=== PATIENT | male | born 1950 | race Caucasian/White ===

== ENCOUNTER → 2016-12-22 | Outpatient (CLI) | payer BC, MEDICARE ==
[2016-12-22 11:09] LABS: ABSOLUTE EOSINOPHILS # (AUTO) 0.1 10^3/uL (0.0-0.6); ABSOLUTE LYMPHOCYTES (AUTO) 1.6 10^3/uL (0.5-4.7); ABSOLUTE MONOCYTES (AUTO) 0.5 10^3/uL (0.1-1.4); ABSOLUTE NEUT (AUTO) 3.7 10^3/uL (1.7-8.2); BASOPHILS % (AUTO) 0.3 % (0-2); EOSINOPHILS % (AUTO) 2.1 % (0-6); HEMATOCRIT 43.9 % (37.9-51.0); HEMOGLOBIN 15.1 g/dL (13.5-17.0); HGB HCT DIFFERENCE 1.4; LYMPHOCYTES % (AUTO) 26.4 % (13-45); MEAN CORPUSCULAR HEMOGLOBIN 30.5 pg (27.0-33.4); MEAN CORPUSCULAR HGB CONC 34.4 g/dL (32.0-36.0); MEAN CORPUSCULAR VOLUME 89 fl (80-97); MONOCYTES % (AUTO) 7.7 % (3-13); RED BLOOD COUNT 4.95 10^6/uL (4.35-5.55); RED CELL DISTRIBUTION WIDTH 14.3 % (11.5-14.0); SEGMENTED NEUTROPHILS % (AUTO) 63.5 % (42-78); WHITE BLOOD COUNT 5.9 10^3/uL (4.0-10.5)
[2016-12-22 11:31] LABS: ALANINE AMINOTRANSFERASE 38 U/L (21-72); ALBUMIN 4.7 g/dL (3.5-5.0); ALKALINE PHOSPHATASE 76 U/L (38-126); ANION GAP 15 (5-19); ASPARTATE AMINO TRANSFERASE 22 U/L (17-59); BILIRUBIN,TOTAL 0.6 mg/dL (0.2-1.3); BLOOD UREA NITROGEN 14 mg/dL (7-20); CALCIUM 10.1 mg/dL (8.4-10.2); CARBON DIOXIDE 27 mmol/L (22-30); CHLORIDE 100 mmol/L (98-107); CHOLESTEROL 202.68 mg/dL (0-200); CREATININE RESULT 0.83 mg/dL (0.52-1.25); Direct HDL 43 mg/dL (>40); GLUCOSE 149 mg/dL (75-110); POTASSIUM 4.8 mmol/L (3.6-5.0); SODIUM 141.8 mmol/L (137-145); TOTAL PROTEIN 7.5 g/dL (6.3-8.2); TRIGLYCERIDES 211 mg/dL (<150)
[2016-12-22 11:42] LABS: DIRECT LDL 108 mg/dL (<100)
[2016-12-22 12:02] LABS: VLDL CHOLESTEROL 42.2 mg/dL (10-31)
== END ==
LOC: OD 10:09
DX: Z79.899 Other long term (current) drug therapy (principal); Z12.5 Encounter for screening for malignant neoplasm of prostate; E11.9 Type 2 diabetes mellitus without complications; E78.5 Hyperlipidemia, unspecified
CPT/HCPCS: 36415; 84443; 85025; 80053; 83036; 80061; G0103

== ENCOUNTER → 2017-03-29 | Outpatient (CLI) | payer BC ==
[2017-03-29 11:29] LABS: ANION GAP 12 (5-19); BLOOD UREA NITROGEN 16 mg/dL (7-20); CALCIUM 9.5 mg/dL (8.4-10.2); CARBON DIOXIDE 26 mmol/L (22-30); CHLORIDE 103 mmol/L (98-107); CHOLESTEROL 208.61 mg/dL (0-200); CREATININE RESULT 0.72 mg/dL (0.52-1.25); Direct HDL 43 mg/dL (>40); GLUCOSE 128 mg/dL (75-110); POTASSIUM 4.7 mmol/L (3.6-5.0); SODIUM 141.2 mmol/L (137-145); TRIGLYCERIDES 120 mg/dL (<150)
[2017-03-29 11:40] LABS: DIRECT LDL 118 mg/dL (<100)
== END ==
LOC: OD 09:21
PROVIDERS: ATTEND Internal Medicine Cardiovascular Disease
DX: I10 Essential (primary) hypertension (principal); R55 Syncope and collapse; E11.65 Type 2 diabetes mellitus with hyperglycemia; E78.5 Hyperlipidemia, unspecified
CPT/HCPCS: 36415; 80048; 80061

== ENCOUNTER 2017-06-14 03:29 | Emergency (ER) | payer BC, MEDICARE ==
[2017-06-14 03:56] VITALS: BP 140/84
[2017-06-14] MEDS ORDERED: DIPH/PERTUSS(ACELL)/TETANUS VAC/PF 0.5 ML SYR (>=10YO) IM ONE (05:34)
--- NOTE | 2017-06-14 05:34 | ER Document Report ---
ED Wound - General Chief Complaint: Laceration Stated Complaint: FINGER LACERATION Time Seen by Provider: 06/14/17 05:25 Notes: Patient is a 66-year-old male comes emergency department for chief complaint of finger pain and swelling to his middle finger on his left hand. Patient reports that about 2-1/2 days ago he accidentally cut the finger with his knife , he states since then it has started to become red, swollen, and have a discolored discharge. He states the area so painful he cannot sleep. He denies fever, he denies history of diabetes. His tetanus is not up-to-date within 5 years. He denies any daily medications other than medications for depression. TRAVEL OUTSIDE OF THE [place] IN LAST 30 DAYS: No - Related Data Allergies/Adverse Reactions: No Known Allergies Allergy (Unverified 06/14/17 03:56) Past Medical History - General Information source: Patient - Social History Smoking Status: Never Smoker Chew tobacco use (# tins/day): No Frequency of alcohol use: None Drug Abuse: None Lives with: Spouse/Significant other Family History: Reviewed & Not Pertinent Patient has suicidal ideation: No Patient has homicidal ideation: No - Past Medical History Cardiac Medical History: Reports: Hx Hypercholesterolemia, Hx Hypertension Endocrine Medical History: Reports: Hx Diabetes Mellitus Type 2 Renal/ Medical History: Denies: Hx Peritoneal Dialysis GI Medical History: Reports: Hx Gastroesophageal Reflux Disease Psychiatric Medical History: Reports: Hx Anxiety, Hx Depression Past Surgical History: Reports: Hx Adenoidectomy, Hx Nose Surgery - DEVIATED SEPTUM, Hx Tonsillectomy - Immunizations Hx Diphtheria, Pertussis, Tetanus Vaccination: No - unknown Review of Systems - Review of Systems Constitutional: No symptoms reported EENT: No symptoms reported Cardiovascular: No symptoms reported Respiratory: No symptoms reported Gastrointestinal: No symptoms reported Genitourinary: No symptoms reported Male Genitourinary: No symptoms reported Musculoskeletal: See HPI Skin: See HPI Hematologic/Lymphatic: No symptoms reported Neurological/Psychological: No symptoms reported Physical Exam - Vital signs Vitals: Temp Pulse Resp BP Pulse Ox 99 F 83 18 140/84 H 96 06/14/17 03:48 06/14/17 03:48 06/14/17 03:48 06/14/17 03:48 06/14/17 03:48 Interpretation: Normal - General General appearance: Appears well, Alert In distress: None - HEENT Head: Normocephalic, Atraumatic Eyes: Normal Pupils: PERRL - Respiratory Respiratory status: No respiratory distress Chest status: Nontender Breath sounds: Normal Chest palpation: Normal - Cardiovascular Rhythm: Regular. No: Tachycardia Heart sounds: Normal auscultation, S1 appreciated, S2 appreciated Murmur: No - Abdominal Inspection: Normal Distension: No distension Bowel sounds: Normal Tenderness: Nontender. No: Tender, Guarding Organomegaly: No organomegaly - Back Back: Normal, Nontender. No: Tender - Extremities General upper extremity: Other - Swelling of the left third digit extending to the dorsum of the left hand, small horizontal laceration over the PIP, when squeezed purulent drainage is expressed from the laceration. Finger resting in slight flexion. Capillary refill and sensation intact. Large amount of pain with passive and active flexion of the finger. General lower extremity: Normal inspection, Nontender, Normal ROM, Normal strength - Neurological Neuro grossly intact: Yes Cognition: Normal Orientation: AAOx4 Jeffrey Coma Scale Eye Opening: Spontaneous Benitez Coma Scale Verbal: Oriented Benitez Coma Scale Motor: Obeys Commands Benitez Coma Scale Total: 15 Speech: Normal Motor strength normal: LUE, RUE, LLE, RLE Sensory: Normal - Psychological Associated symptoms: Normal affect, Normal mood - Skin Skin Temperature: Warm Skin Moisture: Dry Skin Color: Normal Course - Re-evaluation Re-evalutation: 06/14/17 05:42 Patient with a horizontal laceration over the PIP joint of the left middle finger. Redness, swelling of the finger and up in including the dorsal aspect of the hand. Slight flexion of the finger, extreme pain with performing additional flexion. I called and spoke with orthopedics on-call, Dr. Freire he recommends that a wound culture be performed, digital block. With slight opening of the wound for increased drainage, Augmentin antibiotic, and he wants to see the patient in his office this morning and a few hours after the office opens at 8 AM. I discussed this with patient, he states understanding and agreement. - Vital Signs Vital signs: Temp Pulse Resp BP Pulse Ox 99 F 83 18 140/84 H 96 06/14/17 03:48 06/14/17 03:48 06/14/17 03:48 06/14/17 03:48 06/14/17 03:48 Procedures - Incision and Drainage left 3rd digit Type: Single Anesthetic type: 1% Lidocaine, 0.5% Bupivacaine mL's of anesthetic: 6 - digital block Blade size: 11 I&D procedure: Sterile dressing applied - xeroform Incision Method: Incision made by scalpel Amount/type of drainage: 2 ml of purulent drainage with some bleeding Notes: After digital block was performed, area was re-cleaned again with surgical cleanser, reopened the laceration with a scalpel, drained out about 2 mL's of purulent material. Xeroform dressing applied. Discharge - Discharge Clinical Impression: Wound infection, Finger swelling Condition: Stable Disposition: HOME, SELF-CARE Additional Instructions: I spoke with Dr. Freire, Orthopedics collection technician. He wants to see you in his office this morning. Please go to the address listed below this morning. Do not delay. You have an infection in your finger that must be taken care of. Return to the ED for any concerning symptoms. Take the Augmentin antibiotic as directed, take the morphine as directed if needed (along with the colace stool softener to avoid constipation). Prescriptions: Morphine Sulfate [Morphine Ir 15 Mg Tablet] 15 mg PO Q4HP PRN #15 tablet PRN Reason: Amox Tr/Potassium Clavulanate [Augmentin 875-125 Tablet] 1 tab PO BID 7 Days tablet Docusate Sodium [Colace 100 mg Capsule] 100 mg PO DAILY #30 capsule Referrals: STEWART HOPE MD [ACTIVE STAFF] - 06/14/17
[2017-06-14] MEDS ORDERED: AMOXICILLIN TR/POT CLAVULANATE 500-125 MG TAB PO ONE (05:38)
[2017-06-14] MEDS ORDERED: AMOXICILLIN TRIHYDRATE 500 MG CAPSULE PO ONE (05:38)
[2017-06-14] MEDS ORDERED: LIDOCAINE 1% INJ-PF (10 MG/ML) 30 ML SDV INJ ONE (05:39)
[2017-06-14] MEDS ORDERED: HYDROCODONE/ACETAMINOPHEN 5-325 MG 6 TAB/DSPK PO PRN (06:17)
--- NOTE | 2017-06-18 15:45 | PDOC H&P ---
History of Present Illness Patient complains of: Swelling left middle finger History of Present Illness: CHANDANA PATTERSON is a 66 year old male 66-year-old male who sustained a laceration to his left middle finger approximately 1 week ago. He subsequently was seen at the emergency room for an abscess which was decompressed irrigated and started on antibiotics. He was seen in our office with redness and swelling was controlled there was no significant drainage at that time. The patient states over the past 24-48 hours despite antibiotics and daily dressing changes the redness swelling and pain notably worsened and he began having cloudy appearing discharge. His current pain is 7/10. Past Medical History Cardiac Medical History: Reports: Hyperlipidema, Hypertension Endocrine Medical History: Reports: Diabetes Mellitus Type 2 GI Medical History: Reports: Gastroesophageal Reflux Disease Psychiatric Medical History: Reports: Depression Past Surgical History Past Surgical History: Reports: Tonsillectomy Social History Lives with: Spouse/Significant other Smoking Status: Never Smoker Family History Family History: Reviewed & Not Pertinent Parental Family History Reviewed: No Children Family History Reviewed: No Sibling(s) Family History Reviewed.: No Medication/Allergy Home Medications: Amlodipine Besylate [Norvasc 10 mg Tablet] 05/08/12 Armodafinil [Nuvigil] 05/08/12 Eplerenone [Inspra 25 mg Tablet] 05/08/12 Esomeprazole Mag Trihydrate [Nexium] 05/08/12 Fenofibrate Nanocrystallized [Tricor] 05/08/12 Lamotrigine [Lamictal Xr] 05/08/12 Metformin HCl [Glucophage 1000 mg Tablet] 05/08/12 [place]-3 Acid Ethyl Esters [Lovaza 1 gm Capsule] 05/08/12 Paroxetine HCl [Paxil 20 mg Tablet] 05/08/12 Torsemide [Demadex 5 mg Tablet] 05/08/12 Valsartan [Diovan] 05/08/12 Amox Tr/Potassium Clavulanate [Augmentin 875-125 Tablet] 1 tab PO BID 7 Days tablet 06/14/17 Docusate Sodium [Colace 100 mg Capsule] 100 mg PO DAILY #30 capsule 06/14/17 Morphine Sulfate [Morphine Ir 15 Mg Tablet] 15 mg PO Q4HP PRN #15 tablet Allergies/Adverse Reactions: No Known Allergies Allergy (Verified 09/01/17 15:24) Review of Systems Constitutional: ABSENT: chills, fever(s), headache(s), weight gain, weight loss Eyes: ABSENT: visual disturbances Ears: ABSENT: hearing changes Cardiovascular: ABSENT: chest pain, dyspnea on exertion, edema, orthropnea, palpitations Respiratory: ABSENT: cough, hemoptysis Gastrointestinal: ABSENT: abdominal pain, constipation, diarrhea, hematemesis, hematochezia, nausea, vomiting Genitourinary: ABSENT: dysuria, hematuria Musculoskeletal: PRESENT: as per HPI Integumentary: ABSENT: rash, wounds Neurological: ABSENT: abnormal gait, abnormal speech, confusion, dizziness, focal weakness, syncope Psychiatric: ABSENT: anxiety, depression, homidical ideation, suicidal ideation Endocrine: ABSENT: cold intolerance, heat intolerance, menstrual abnormalities, polydipsia, polyuria Hematologic/Lymphatic: ABSENT: easy bleeding, easy bruising, lymphadenopathy Physical Exam Vital Signs: Temp Pulse Resp BP Pulse Ox 99 F 78 18 140/84 H 97 06/14/17 03:48 06/14/17 06:27 06/14/17 06:27 06/14/17 03:48 06/14/17 06:27 General appearance: PRESENT: no acute distress, well-developed, well-nourished Head exam: PRESENT: atraumatic, normocephalic Eye exam: PRESENT: conjunctiva pink, EOMI, PERRLA. ABSENT: scleral icterus Ear exam: PRESENT: normal external ear exam Mouth exam: PRESENT: moist, tongue midline Neck exam: PRESENT: full ROM. ABSENT: carotid bruit, JVD, lymphadenopathy, thyromegaly Respiratory exam: PRESENT: unlabored Cardiovascular exam: PRESENT: RRR. ABSENT: diastolic murmur, rubs, systolic murmur Pulses: PRESENT: normal dorsalis pedis pul, +2 pedal pulses bilateral Vascular exam: PRESENT: normal capillary refill GI/Abdominal exam: PRESENT: normal bowel sounds, soft. ABSENT: distended, guarding, mass, organolmegaly, rebound, tenderness Rectal exam: PRESENT: deferred Musculoskeletal exam: PRESENT: other - Left hand: Notable redness swelling with transverse wound along the PIP joint dorsally. Erythema throughout the dorsum of the finger. Pain with terminal flexion. Digit rest in the flexed position. No tenderness along the flexor sheath. Cloudy drainage expressed with palpation. Cap refill less than 2 seconds. No sensory deficits. Neurological exam: PRESENT: alert, awake, oriented to person, oriented to place , oriented to time, oriented to situation, CN II-XII grossly intact. ABSENT: motor sensory deficit Psychiatric exam: PRESENT: appropriate affect, normal mood. ABSENT: homicidal ideation, suicidal ideation Skin exam: PRESENT: dry, intact, warm. ABSENT: cyanosis, rash Results Laboratory Results: 06/14/17 06:10 Finger - Left Middle Finger Gram Stain - Final 06/14/17 06:10 Finger - Left Middle Finger Wound Culture - Final Staphylococcus Aureus Assessment & Plan - Diagnosis (1) Abscess of finger of left hand Is this a current diagnosis for this admission?: Yes Plan: Patient demonstrates cloudy drainage on examination today which is consistent with possible residual abscess of the left middle finger but given its location underlying PIP joint septic arthritis remains within the differential diagnosis. Patient will be started on IV Unasyn since his previous cultures were pansensitive. We will set him up for operative intervention within the next 24 hours which includes irrigation and debridement left middle finger. Risks and benefits have been explained to the patient including residual pain, stiffness, posttraumatic arthritis, worsening infection requiring repeat operative intervention and any unforeseen complication patient has verbalized understanding consented for the procedure.
== END 2017-06-14 06:27 | disposition home or self-care (01) ==
LOC: ER 03:29
PROC: 0H9GXZZ Drainage of Left Hand Skin, External Approach (ICD-10-PCS; principal; 2017-06-14)
DX: S61.213A Laceration without foreign body of left middle finger without damage to nail, initial encounter (principal); L08.9 Local infection of the skin and subcutaneous tissue, unspecified; W26.0XXA Contact with knife, initial encounter; E11.9 Type 2 diabetes mellitus without complications; I10 Essential (primary) hypertension
CPT/HCPCS: 87070; 87077; 87186; 87205; 90471; 90715; 99283

== ENCOUNTER 2017-06-18 14:46 | Inpatient (IN) | payer BC, MEDICARE ==
[2017-06-18] MEDS ORDERED: NORMAL SALINE 1000 ML 1,000 ML IV ONE ×2 (15:41→15:53)
[2017-06-18] MEDS ORDERED: AMPICILLIN SOD/SULBACTAM 3 GM VIAL IV ONE (15:42)
--- NOTE | 2017-06-18 15:42 | ER Document Report ---
ED General - General Chief Complaint: Wound Infection Stated Complaint: WOUND REVISIT Time Seen by Provider: 06/18/17 15:33 TRAVEL OUTSIDE OF THE [place] IN LAST 30 DAYS: No - HPI Patient complains to provider of: Left middle finger infection Notes: Patient coming in for evaluation of a wound on left middle finger at the PIP joint. Patient was recently seen and evaluated by our staff here in ER and then followed up with orthopedics patient is currently on Augmentin patient states has been compliant with medication however worsening of infection patient also having night sweats and chills. Denies any fevers patient otherwise is in no obvious distress upon my evaluation - Related Data Allergies/Adverse Reactions: No Known Allergies Allergy (Verified 06/18/17 15:24) Home Medications: Current Home Medications Alprazolam [Xanax 0.5 mg Tablet] 0.5 mg PO Q12HP PRN 06/18/17 [History] Amlodipine Besylate [Norvasc 10 mg Tablet] 10 mg PO DAILY 06/18/17 [History] Amoxicillin/Potassium Clav [Amox-Clav 875-125 mg Tablet] 1 tab PO Q12 PRN [History] Clonidine HCl [Clonidine HCl] 0.3 mg PO Q12 06/18/17 [History] Dextroamphetamine/Amphetamine [Dextroamp-Amphet ER 30 mg Cap] 30 mg PO DAILY 11/03 [History] Eplerenone [Eplerenone] 50 mg PO DAILY 06/18/17 [History] Lamotrigine [Lamotrigine] 200 mg PO DAILY 06/18/17 [History] Lisinopril [Lisinopril] 40 mg PO DAILY 06/18/17 [History] Metformin HCl [Metformin HCl ER] 750 mg PO BIDBS 06/18/17 [History] Morphine Sulfate [Morphine Sulfate] 15 mg PO Q4HP PRN 06/18/17 [History] Paroxetine HCl [Paroxetine HCl] 40 mg PO DAILY 06/18/17 [History] Past Medical History - Social History Smoking Status: Never Smoker Chew tobacco use (# tins/day): No Frequency of alcohol use: None Drug Abuse: None Family History: Reviewed & Not Pertinent Patient has suicidal ideation: No Patient has homicidal ideation: No - Past Medical History Cardiac Medical History: Reports: Hx Hypercholesterolemia, Hx Hypertension Endocrine Medical History: Reports: Hx Diabetes Mellitus Type 2 Renal/ Medical History: Denies: Hx Peritoneal Dialysis GI Medical History: Reports: Hx Gastroesophageal Reflux Disease Psychiatric Medical History: Reports: Hx Anxiety, Hx Depression Past Surgical History: Reports: Hx Abdominal Surgery, Hx Adenoidectomy, Hx Nose Surgery - DEVIATED SEPTUM, Hx Tonsillectomy - Immunizations Hx Diphtheria, Pertussis, Tetanus Vaccination: No - unknown Review of Systems - Review of Systems Constitutional: No symptoms reported EENT: No symptoms reported Cardiovascular: No symptoms reported Respiratory: No symptoms reported Gastrointestinal: No symptoms reported Genitourinary: No symptoms reported Male Genitourinary: No symptoms reported Musculoskeletal: No symptoms reported Skin: No symptoms reported Hematologic/Lymphatic: No symptoms reported Neurological/Psychological: Other - Wound evaluation -: Yes All other systems reviewed and negative Physical Exam - Vital signs Vitals: Temp Pulse Resp BP Pulse Ox 99.3 F 112 H 18 185/106 H 99 06/18/17 14:54 06/18/17 14:54 06/18/17 14:54 06/18/17 14:54 06/18/17 14:54 Interpretation: Normal - General General appearance: Appears well, Alert - HEENT Head: Normocephalic, Atraumatic Eyes: Normal Pupils: PERRL - Respiratory Respiratory status: No respiratory distress Chest status: Nontender Breath sounds: Normal Chest palpation: Normal - Cardiovascular Rhythm: Regular Heart sounds: Normal auscultation Murmur: No - Abdominal Inspection: Normal Distension: No distension Bowel sounds: Normal Tenderness: Nontender Organomegaly: No organomegaly - Back Back: Normal, Nontender - Extremities General upper extremity: Nontender, Normal color, Normal ROM, Normal temperature. No: Normal inspection - Patient coming in with a wound to the PIP joint on the dorsum of the left hand that is open painful range of motion active and passive. Swelling to the PIP tender to palpation at this finger General lower extremity: Normal inspection, Nontender, Normal color, Normal ROM , Normal temperature, Normal weight bearing. No: Nae's sign - Neurological Neuro grossly intact: Yes Cognition: Normal Orientation: AAOx4 Irvona Coma Scale Eye Opening: Spontaneous Benitez Coma Scale Verbal: Oriented Benitez Coma Scale Motor: Obeys Commands Irvona Coma Scale Total: 15 Speech: Normal Motor strength normal: LUE, RUE, LLE, RLE Sensory: Normal - Psychological Associated symptoms: Normal affect, Normal mood - Skin Skin Temperature: Warm Skin Moisture: Dry Skin Color: Normal Course - Re-evaluation Re-evalutation: 06/18/17 19:[address] Braga came to evaluate the patient will admit the patient for surgery in the morning more likely will have a cleanout. Laboratory studies were ordered per Dr. hartley's request along with antibiotics. - Vital Signs Vital signs: Temp Pulse Resp BP Pulse Ox 99.3 F 86 16 151/99 H 99 06/18/17 17:21 06/18/17 19:00 06/18/17 17:21 06/18/17 19:00 06/18/17 17:21 - Laboratory Result Diagrams: 06/18/17 16:51 06/18/17 18:00 Discharge - Discharge Clinical Impression: Finger swelling, Wound infection Condition: Good Disposition: ADMITTED INPATIENT Admitting Provider: Maria Luz Unit Admitted: Surgical Floor
--- NOTE | 2017-06-18 15:50 | PDOC H&P ---
History of Present Illness Patient complains of: left middle finger swelling History of Present Illness: History of Present Illness Patient complains of: Swelling left middle finger History of Present Illness: CHANDANA PATTERSON is a 66 year old male 66-year-old male who sustained a laceration to his left middle finger approximately 1 week ago. He subsequently was seen at the emergency room for an abscess which was decompressed irrigated and started on antibiotics. He was seen in our office with redness and swelling was controlled there was no significant drainage at that time. The patient states over the past 24-48 hours despite antibiotics and daily dressing changes the redness swelling and pain notably worsened and he began having cloudy appearing discharge. His current pain is 7/10. Musculoskeletal exam: PRESENT: other - Left hand: Notable redness swelling with transverse wound along the PIP joint dorsally. Erythema throughout the dorsum of the finger. Pain with terminal flexion. Digit rest in the flexed position. No tenderness along the flexor sheath. Cloudy drainage expressed with palpation. Cap refill less than 2 seconds. No sensory deficits. Neurological exam: PRESENT: alert, awake, oriented to person, oriented to place , oriented to time, oriented to situation, CN II-XII grossly intact. ABSENT: motor sensory deficit Psychiatric exam: PRESENT: appropriate affect, normal mood. ABSENT: homicidal ideation, suicidal ideation Skin exam: PRESENT: dry, intact, warm. ABSENT: cyanosis, rash Results Laboratory Results: 06/14/17 06:10 Finger - Left Middle Finger Gram Stain - Final 06/14/17 06:10 Finger - Left Middle Finger Wound Culture - Final Staphylococcus Aureus Assessment & Plan - Diagnosis (1) Abscess of finger of left hand Is this a current diagnosis for this admission?: Yes Plan: Patient demonstrates cloudy drainage on examination today which is consistent with possible residual abscess of the left middle finger but given its location underlying PIP joint septic arthritis remains within the differential diagnosis. Patient will be started on IV Unasyn since his previous cultures were pansensitive. We will set him up for operative intervention within the next 24 hours which includes irrigation and debridement left middle finger. Risks and benefits have been explained to the patient including residual pain, stiffness, posttraumatic arthritis, worsening infection requiring repeat operative intervention and any unforeseen complication patient has verbalized understanding consented for the procedure. Past Medical History Cardiac Medical History: Reports: Hyperlipidema, Hypertension Endocrine Medical History: Reports: Diabetes Mellitus Type 2 GI Medical History: Reports: Gastroesophageal Reflux Disease Psychiatric Medical History: Reports: Depression Past Surgical History Past Surgical History: Reports: Tonsillectomy Social History Smoking Status: Never Smoker Family History Family History: Reviewed & Not Pertinent Parental Family History Reviewed: No Children Family History Reviewed: No Sibling(s) Family History Reviewed.: No Medication/Allergy Home Medications: Amlodipine Besylate [Norvasc 10 mg Tablet] 05/08/12 Armodafinil [Nuvigil] 05/08/12 Eplerenone [Inspra 25 mg Tablet] 05/08/12 Esomeprazole Mag Trihydrate [Nexium] 05/08/12 Fenofibrate Nanocrystallized [Tricor] 05/08/12 Lamotrigine [Lamictal Xr] 05/08/12 Metformin HCl [Glucophage 1000 mg Tablet] 05/08/12 Pachuta-3 Acid Ethyl Esters [Lovaza 1 gm Capsule] 05/08/12 Paroxetine HCl [Paxil 20 mg Tablet] 05/08/12 Torsemide [Demadex 5 mg Tablet] 05/08/12 Valsartan [Diovan] 05/08/12 Amox Tr/Potassium Clavulanate [Augmentin 875-125 Tablet] 1 tab PO BID 7 Days tablet 06/14/17 Docusate Sodium [Colace 100 mg Capsule] 100 mg PO DAILY #30 capsule 06/14/17 Morphine Sulfate [Morphine Ir 15 Mg Tablet] 15 mg PO Q4HP PRN #15 tablet Allergies/Adverse Reactions: No Known Allergies Allergy (Verified 06/18/17 15:24) Review of Systems Constitutional: ABSENT: chills, fever(s), headache(s), weight gain, weight loss Eyes: ABSENT: visual disturbances Ears: ABSENT: hearing changes Cardiovascular: ABSENT: chest pain, dyspnea on exertion, edema, orthropnea, palpitations Respiratory: ABSENT: cough, hemoptysis Gastrointestinal: ABSENT: abdominal pain, constipation, diarrhea, hematemesis, hematochezia, nausea, vomiting Genitourinary: ABSENT: dysuria, hematuria Musculoskeletal: PRESENT: as per HPI Integumentary: ABSENT: rash, wounds Neurological: ABSENT: abnormal gait, abnormal speech, confusion, dizziness, focal weakness, syncope Psychiatric: ABSENT: anxiety, depression, homidical ideation, suicidal ideation Endocrine: ABSENT: cold intolerance, heat intolerance, menstrual abnormalities, polydipsia, polyuria Hematologic/Lymphatic: ABSENT: easy bleeding, easy bruising, lymphadenopathy Physical Exam Vital Signs: Temp Pulse Resp BP Pulse Ox 99.3 F 112 H 18 185/106 H 99 06/18/17 14:54 06/18/17 14:54 06/18/17 14:54 06/18/17 14:54 06/18/17 14:54 Intake & Output 06/17/17 06/18/17 06/19/17 06:59 06:59 06:59 Weight 81.1 kg General appearance: PRESENT: no acute distress, well-developed, well-nourished Head exam: PRESENT: atraumatic, normocephalic Eye exam: PRESENT: conjunctiva pink, EOMI, PERRLA. ABSENT: scleral icterus Ear exam: PRESENT: normal external ear exam Mouth exam: PRESENT: moist, tongue midline Neck exam: PRESENT: full ROM. ABSENT: carotid bruit, JVD, lymphadenopathy, thyromegaly Respiratory exam: PRESENT: unlabored Cardiovascular exam: PRESENT: RRR. ABSENT: diastolic murmur, rubs, systolic murmur Pulses: PRESENT: normal dorsalis pedis pul, +2 pedal pulses bilateral Vascular exam: PRESENT: normal capillary refill GI/Abdominal exam: PRESENT: normal bowel sounds, soft. ABSENT: distended, guarding, mass, organolmegaly, rebound, tenderness Rectal exam: PRESENT: deferred Musculoskeletal exam: PRESENT: other - Left hand: Notable redness swelling with transverse wound along the PIP joint dorsally. Erythema throughout the dorsum of the finger. Pain with terminal flexion. Digit rest in the flexed position. No tenderness along the flexor sheath. Cloudy drainage expressed with palpation. Cap refill less than 2 seconds. No sensory deficits. Neurological exam: PRESENT: alert, awake, oriented to person, oriented to place , oriented to time, oriented to situation, CN II-XII grossly intact. ABSENT: motor sensory deficit Psychiatric exam: PRESENT: appropriate affect, normal mood. ABSENT: homicidal ideation, suicidal ideation Skin exam: PRESENT: dry, intact, warm. ABSENT: cyanosis, rash Assessment & Plan - Diagnosis (1) Abscess of finger of left hand Is this a current diagnosis for this admission?: Yes Plan: Patient demonstrates cloudy drainage on examination today which is consistent with possible residual abscess of the left middle finger but given its location underlying PIP joint septic arthritis remains within the differential diagnosis. Patient will be started on IV Unasyn since his previous cultures were pansensitive. We will set him up for operative intervention within the next 24 hours which includes irrigation and debridement left middle finger. Risks and benefits have been explained to the patient including residual pain, stiffness, posttraumatic arthritis, worsening infection requiring repeat operative intervention and any unforeseen complication patient has verbalized understanding consented for the procedure.
[2017-06-18] MEDS ORDERED: DEXTROSE 50%-WATER 25 GM/50 ML DISP.SYRIN IV PRN ×2 (15:52)
[2017-06-18] MEDS ORDERED: DEXTROSE 40% GEL 15 GM TUBE PO PRN ×4 (15:52→18:09)
[2017-06-18] MEDS ORDERED: GLUCAGON,HUMAN RECOMB 1 MG INJ SUBCUT PRN (15:52)
[2017-06-18] MEDS ORDERED: DIPH/PERTUSS(ACELL)/TETANUS VAC/PF 0.5 ML SYR (>=10YO) IM ONE (16:02)
[2017-06-18 17:03] LABS: ABSOLUTE BASOPHILS # (AUTO) 0.1 10^3/uL (0.0-0.2); ABSOLUTE EOSINOPHILS # (AUTO) 0.2 10^3/uL (0.0-0.6); ABSOLUTE LYMPHOCYTES (AUTO) 1.4 10^3/uL (0.5-4.7); ABSOLUTE MONOCYTES (AUTO) 0.7 10^3/uL (0.1-1.4); ABSOLUTE NEUT (AUTO) 6.1 10^3/uL (1.7-8.2); BASOPHILS % (AUTO) 0.6 % (0-2); EOSINOPHILS % (AUTO) 2.1 % (0-6); HEMATOCRIT 40.3 % (37.9-51.0); HGB HCT DIFFERENCE 1.7; LYMPHOCYTES % (AUTO) 16.4 % (13-45); MEAN CORPUSCULAR HEMOGLOBIN 30.7 pg (27.0-33.4); MEAN CORPUSCULAR HGB CONC 34.7 g/dL (32.0-36.0); MEAN CORPUSCULAR VOLUME 88 fl (80-97); RED BLOOD COUNT 4.56 10^6/uL (4.35-5.55); RED CELL DISTRIBUTION WIDTH 13.6 % (11.5-14.0); SEGMENTED NEUTROPHILS % (AUTO) 72.9 % (42-78); WHITE BLOOD COUNT 8.4 10^3/uL (4.0-10.5)
[2017-06-18 17:13] LABS: PROTHROMBIN TIME 12.9 SEC (11.4-15.4)
[2017-06-18 17:14] LABS: PARTIAL THROMBOPLASTIN TIME 33.2 SEC (23.5-35.8)
--- NOTE | 2017-06-18 17:14 | PDOC CONSULTATION ---
Consultation Consult Date: 06/18/17 Attending physician:: LIVAN VILLALOBOS Consult reason:: To manage medical illnesses to include diabetes and hypertension. History of Present Illness Admission Date/PCP: The patient is a 66 yom who sustained a laceration to the third finger of his left hand last Wednesday while he was sharpening a knife. He washed the wound with peroxide. The swelling and pain continued to get worse and he was unable to sleep. The patient presented to the ED on Wednesday AM at approximately 0300 with pain and inability to sleep. He underwent I and D. He was discharged on Augmentin 875 BID. He was also discharged on Vicodin and Morphine for pain. The patient was seen later that day by [facility]. He was seen by a hand surgeon. It was felt that he would improve with oral antibiotics. He has a scheduled follow-up for June 23, 2017. Unfortunately, the swelling has persisted. The patient has been having chills and drenching sweats at home. Therefore, he returned to the ED today. He was evaluated by Dr. Villalobos and will have surgery tomorrow am. The patient also notes purulent drainage from the area. When the patient was previously in the ED a culture was sent. This demonstrates brambila sensitive MSSA. The patient takes the following medications at home: Norvasc 10mg po daily Metformin 750mg po bid Dexamphetamine 30mg po daily Lisinopril 40mg po daily Clonidine 0.3mg po bid Eplerenone 50mg po daily Paxil 20mg po daily Lamotrigine 200mg po daily Alprazolam 0.5mg po bid Past Medical History Cardiac Medical History: Reports: Hyperlipidema, Hypertension Pulmonary Medical History: Reports: Sleep Apnea Endocrine Medical History: Reports: Diabetes Mellitus Type 2 GI Medical History: Reports: Gastroesophageal Reflux Disease Psychiatric Medical History: Reports: Attention Deficit Hyperactivity Disorder, Depression Past Surgical History Past Surgical History: Reports: Appendectomy, Tonsillectomy, Other - Repair of Meckel's diverticulum. Deviated septum repair. Social History Smoking Status: Never Smoker Family History Family History: Reviewed & Not Pertinent, CVA, DM, Hypertension, Other - Depression in multiple family members. Parental Family History Reviewed: Yes Children Family History Reviewed: NA Sibling(s) Family History Reviewed.: Yes - Younger brother committed suicide. Medication/Allergy Allergies/Adverse Reactions: No Known Allergies Allergy (Verified 06/18/17 15:24) Review of Systems Constitutional: PRESENT: chills, night sweats Eyes: ABSENT: visual disturbances Ears: ABSENT: hearing changes Cardiovascular: ABSENT: chest pain, dyspnea on exertion, edema, orthropnea, palpitations Respiratory: ABSENT: cough, hemoptysis Gastrointestinal: ABSENT: abdominal pain, constipation, diarrhea, hematemesis, hematochezia, nausea, vomiting Genitourinary: ABSENT: dysuria, hematuria Musculoskeletal: PRESENT: as per HPI Integumentary: ABSENT: rash, wounds Neurological: ABSENT: abnormal gait, abnormal speech, confusion, dizziness, focal weakness, syncope Psychiatric: PRESENT: depression Endocrine: ABSENT: cold intolerance, heat intolerance, polydipsia, polyuria Hematologic/Lymphatic: ABSENT: easy bleeding, easy bruising Physical Exam Vital Signs: Temp Pulse Resp BP Pulse Ox 99.3 F 112 H 18 185/106 H 99 06/18/17 14:54 06/18/17 14:54 06/18/17 14:54 06/18/17 14:54 06/18/17 14:54 General appearance: PRESENT: no acute distress, cooperative Head exam: PRESENT: atraumatic Eye exam: PRESENT: EOMI Ear exam: PRESENT: normal external ear exam Mouth exam: PRESENT: neck supple Throat exam: PRESENT: other - Normal Respiratory exam: PRESENT: clear to auscultation vito Cardiovascular exam: PRESENT: RRR GI/Abdominal exam: PRESENT: normal bowel sounds, soft Rectal exam: PRESENT: deferred Neurological exam: PRESENT: alert, awake Psychiatric exam: PRESENT: appropriate affect - The middle finger of the left hand is swollen and edematous. There is an incision already present. There is a significant degree of ecchymosis around the area. The hand is also swollen. There are no streaks of erythema up the arm. There is no lymphadenopathy in the axilla, SC area or cervical area. Assessment & Plan - Diagnosis (1) Diabetes Plan: The patient normally uses Metformin at home with good control of his diabetes. While he is hospitalized I would hold Metformin and use sliding scale insulin. (2) Hypertension Plan: Continue the patient's routine OP HTN meds which are Norvasc 10mg po daily, lisinopril 40mg po daily, clonidine 0.3mg po bid. (3) Obstructive sleep apnea Plan: The patient does not have access to his CPAP machine. He will sleep in a partially inclined position. If necessary we can empirically use one of the hospitals machines but the patient does not know his pressure setting. (4) Depression Plan: Continue his psychiatric medications. (5) Adult ADHD (attention deficit hyperactivity disorder) Plan: Continue outpatient medications. (6) Abscess of finger of left hand Is this a current diagnosis for this admission?: Yes Plan: Dr. Villalobos is planning on taking the patient to the OR tomorrow for surgical I and D with washout. Additional cultures will likely be taken. Currently, the patient is receiving intravenous Unasyn which should be adequate based on the current culture. - Time Time Spent: 30 to 50 Minutes - Inpatient Certification Medical Necessity: Need for IV Antibiotics, Need for Surgery - Plan Summary Plan Summary: Thank you for allowing us to participate in the care of this patient. We will follow his course with you.
--- NOTE | 2017-06-18 17:18 | RADIOLOGY REPORT (SQ) ---
EXAM DESCRIPTION: HAND LEFT 3 VIEWS COMPLETED DATE/TIME: 06/18/2017 5:09 pm REASON FOR STUDY: eval middle finger infection COMPARISON: None. EXAM PARAMETERS: NUMBER OF VIEWS: Three views. TECHNIQUE: AP, lateral and oblique radiographic images acquired of the left hand. LIMITATIONS: None. FINDINGS: MINERALIZATION: Normal. BONES: No acute fracture or dislocation. No worrisome bone lesions. JOINTS: No effusions. SOFT TISSUES: Soft tissue swelling centered at the 3rd PIP joint. OTHER: No other significant finding. IMPRESSION: SOFT TISSUE SWELLING WITHOUT ACUTE OSSEOUS ABNORMALITY. TECHNICAL DOCUMENTATION: JOB ID: [id number] [employer]- All Rights Reserved
[2017-06-18 17:24] LABS: ANION GAP 15 (5-19); BLOOD UREA NITROGEN 17 mg/dL (7-20); C-REACTIVE PROTEIN 35.8 mg/L (<10.0); CALCIUM 9.8 mg/dL (8.4-10.2); CARBON DIOXIDE 25 mmol/L (22-30); CHLORIDE 104 mmol/L (98-107); CREATININE RESULT 0.65 mg/dL (0.52-1.25); GLUCOSE 136 mg/dL (75-110); SODIUM 144.4 mmol/L (137-145)
[2017-06-18 17:39] LABS: ERYTHROCYTE SEDIMENTATION RATE 31 mm/hr (0-20)
[2017-06-18] MEDS ORDERED: AMPICILLIN SOD/SULBACTAM 3 GM VIAL IV SCH (18:00)
[2017-06-18] MEDS ORDERED: ALPRAZOLAM 0.5 MG TABLET PO PRN (18:01)
[2017-06-18] MEDS ORDERED: INSULIN LISPRO 100 UNIT/ML 3 ML VIAL SUBCUT PRN (18:09)
[2017-06-18] MEDS: RINGERS SOLUTION,LACTATED 1,000 ML IV PRN (18:15)
[2017-06-18 18:40] LABS: ANION GAP 11 (5-19); BLOOD UREA NITROGEN 16 mg/dL (7-20); CALCIUM 8.9 mg/dL (8.4-10.2); CARBON DIOXIDE 27 mmol/L (22-30); CHLORIDE 106 mmol/L (98-107); CREATININE RESULT 0.63 mg/dL (0.52-1.25); GLUCOSE 97 mg/dL (75-110); POTASSIUM 3.8 mmol/L (3.6-5.0); SODIUM 144.3 mmol/L (137-145)
[2017-06-18] MEDS ORDERED: EPLERENONE 25 MG TABLET PO ONE (19:00)
[2017-06-18] MEDS ORDERED: OXYCODONE HCL IR 5 MG TABLET PO PRN (19:06)
[2017-06-18] MEDS ORDERED: MORPHINE SULFATE 10 MG/ML INJ IV PRN (19:07)
[2017-06-18] MEDS: CLONIDINE HCL 0.2 MG TABLET PO SCH (21:29)
[2017-06-18] MEDS ORDERED: (PENDING PHARMACY ID) (Clonidine Hcl [Clonidine Hcl] 0.3 MG) PO SCH (22:00)
--- NOTE | 2017-06-18 22:03 | EKG REPORT ---
SEVERITY:- ABNORMAL ECG - SINUS RHYTHM MULTIPLE VENTRICULAR PREMATURE COMPLEXES LEFT AXIS DEVIATION : Confirmed by: Ruby Jiménez 18-Jun-2017 22:03:05
[2017-06-18] MEDS: AMPICILLIN SODIUM/SULBACTAM NA 3 GM in NORMAL SALINE 100 ML IV SCH (23:29)
[2017-06-19] MEDS: AMPICILLIN SODIUM/SULBACTAM NA 3 GM in NORMAL SALINE 100 ML IV SCH ×3 (05:02→17:40)
[2017-06-19 06:13] LABS: ABSOLUTE EOSINOPHILS # (AUTO) 0.2 10^3/uL (0.0-0.6); ABSOLUTE LYMPHOCYTES (AUTO) 1.4 10^3/uL (0.5-4.7); ABSOLUTE MONOCYTES (AUTO) 0.5 10^3/uL (0.1-1.4); ABSOLUTE NEUT (AUTO) 3.3 10^3/uL (1.7-8.2); BASOPHILS % (AUTO) 0.4 % (0-2); HEMATOCRIT 36.5 % (37.9-51.0); HEMOGLOBIN 12.5 g/dL (13.5-17.0); LYMPHOCYTES % (AUTO) 25.7 % (13-45); MEAN CORPUSCULAR HEMOGLOBIN 30.7 pg (27.0-33.4); MEAN CORPUSCULAR HGB CONC 34.3 g/dL (32.0-36.0); MEAN CORPUSCULAR VOLUME 90 fl (80-97); MONOCYTES % (AUTO) 9.3 % (3-13); RED BLOOD COUNT 4.08 10^6/uL (4.35-5.55); SEGMENTED NEUTROPHILS % (AUTO) 61.6 % (42-78); WHITE BLOOD COUNT 5.3 10^3/uL (4.0-10.5)
[2017-06-19] MEDS ORDERED: FENTANYL CITRATE INJ/PF 100 MCG/2 ML AMPUL ONE (07:37)
[2017-06-19] MEDS ORDERED: PROPOFOL INJ 200 MG/20 ML VIAL IV ONE (07:38)
[2017-06-19] MEDS ORDERED: MIDAZOLAM 2 MG/2 ML INJ ONE (07:38)
[2017-06-19] MEDS ORDERED: BACITRACIN INJ 50,000 UNIT VIAL ONE (07:52)
--- NOTE | 2017-06-19 08:09 | PDOC PROGRESS REPORT ---
Subjective Progress Note for:: 06/19/17 Subjective:: Patient seen and evaluated this morning. States his pain and swelling have improved since the IV antibiotics. But continues to have drainage from the finger. Physical Exam Vital Signs: Temp Pulse Resp BP Pulse Ox 98.4 F 69 16 143/81 H 100 06/19/17 04:34 06/19/17 04:34 06/19/17 04:34 06/19/17 04:34 06/19/17 04:34 Intake & Output 06/18/17 06/19/17 06/20/17 06:59 06:59 06:59 Weight 81.1 kg Musculoskeletal exam: PRESENT: other - Left middle finger: Improved erythema however continued swelling along the PIP joint of the middle finger with purulent drainage dorsally. Patient has full active extension but limited flexion secondary to pain. No tenderness along the flexor sheath. Results Laboratory Results: 06/19/17 05:05 06/18/17 18:00 06/18/17 06/18/17 06/18/17 16:51 16:51 18:00 WBC 8.4 RBC 4.56 Hgb 14.0 Hct 40.3 MCV 88 MCH 30.7 MCHC 34.7 RDW 13.6 Plt Count 247 Seg Neutrophils % 72.9 Lymphocytes % 16.4 Monocytes % 8.0 Eosinophils % 2.1 Basophils % 0.6 Absolute Neutrophils 6.1 Absolute Lymphocytes 1.4 Absolute Monocytes 0.7 Absolute Eosinophils 0.2 Absolute Basophils 0.1 Sodium 144.4 144.3 Potassium 4.0 3.8 Chloride 104 106 Carbon Dioxide 25 27 Anion Gap 15 11 BUN 17 16 Creatinine 0.65 0.63 Est GFR ( Amer) > 60 > 60 Est GFR (Non-Af Amer) > 60 > 60 Glucose 136 H 97 Calcium 9.8 8.9 Magnesium 2.0 C-Reactive Protein 35.8 H 06/19/17 05:05 WBC 5.3 RBC 4.08 L Hgb 12.5 L Hct 36.5 L MCV 90 MCH 30.7 MCHC 34.3 RDW 14.0 Plt Count 198 Seg Neutrophils % 61.6 Lymphocytes % 25.7 Monocytes % 9.3 Eosinophils % 3.0 Basophils % 0.4 Absolute Neutrophils 3.3 Absolute Lymphocytes 1.4 Absolute Monocytes 0.5 Absolute Eosinophils 0.2 Absolute Basophils 0.0 Sodium Potassium Chloride Carbon Dioxide Anion Gap BUN Creatinine Est GFR ( Amer) Est GFR (Non-Af Amer) Glucose Calcium Magnesium C-Reactive Protein Impressions: Hand X-Ray 06/18/17 15:41 IMPRESSION: SOFT TISSUE SWELLING WITHOUT ACUTE OSSEOUS ABNORMALITY. Assessment & Plan - Diagnosis (1) Abscess of finger of left hand Is this a current diagnosis for this admission?: Yes Plan: Patient demonstrates continued cloudy drainage on examination today which is consistent with possible residual abscess of the left middle finger but given its location underlying PIP joint septic arthritis remains within the differential diagnosis. Patient will be continued on IV Unasyn since his previous cultures were pansensitive. Patient will undergo operative intervention today which includes irrigation and debridement left middle finger. Risks and benefits have been explained to the patient including residual pain, stiffness, posttraumatic arthritis, worsening infection requiring repeat operative intervention and any unforeseen complication patient has verbalized understanding consented for the procedure.
[2017-06-19] MEDS ORDERED: BACITRACIN INJ 50,000 UNIT VIAL IR ONE (08:19)
[2017-06-19] MEDS ORDERED: LIDOCAINE 1% INJ-PF (10 MG/ML) 30 ML SDV INJ ONE (08:19)
[2017-06-19] MEDS ORDERED: LIDOCAINE 1% INJ-PF (10 MG/ML) 30 ML SDV ONE (08:19)
[2017-06-19] MEDS ORDERED: OXYCODONE HCL IR 5 MG TABLET PO PRN (08:27)
[2017-06-19] MEDS ORDERED: ACETAMINOPHEN 325 MG TABLET PO PRN (08:28)
--- NOTE | 2017-06-19 08:57 | Operative Report ---
Operative Report DATE OF SURGERY: 06/19/17 PREOPERATIVE DIAGNOSIS: Right Middle Finger Infection POSTOPERATIVE DIAGNOSIS: Septic Arthritis Right Middle PIP Joint OPERATION: Excisional I&D Right Middle Finger PIP Including Joint/Bone SURGEON: LIVAN VILLALOBOS ANESTHESIA: LMAC TISSUE REMOVED OR ALTERED: Aerobic/Anaerobic Swabs COMPLICATIONS: None ESTIMATED BLOOD LOSS: Minimal PROCEDURE: Indication for above procedure: 66-year-old male who sustained a inadvertent laceration to his left middle finger dorsally. He then developed redness swelling and pain he was then brought to the emergency room where he was diagnosed with infection. Patient was started on antibiotics and cultures were obtained demonstrating methicillin sensitive staph aureus. Patient continued to have redness swelling and pain of the left middle finger. At that point we discussed treatment options and I recommended formal irrigation and debridement. Risks and benefits were explained patient verbalized understanding consented for the procedure. Procedure In Detail: Patient was seen and evaluated in the preoperative holding area. The LEFT upper extremity was initialized and marked. Patient receiving scheduled Unasyn. Patient was taken back to the operative room where transferred to the operative table and placed under MAC anesthesia. Once they were adequately anesthetized a nonsterile tourniquet was placed on the upper extremity. A surgical team debriefing was performed ensuring all instrumentation was available, the surgical procedure was discussed with possible concerns reviewed. A digital block was performed utilizing 10 cc of 1% lidocaine without epinephrine. The upper extremity was prepped with Betadine and draped in a sterile fashion. A timeout was done identifying correct patient, procedure and extremity everyone in attendance agree with this and verbalized no concerns. A digital tourniquet was placed. Patient's transverse skin incision was extended radially and ulnarly. There was disruption of the extensor tendon at this level and the PIP joint was exposed. Cloudy synovial fluid was expressed from the joint. Cultures were obtained. With gravity irrigation the PIP joint was irrigated. Inspection of the proximal middle phalanx demonstrate no softening of the bone to suggest osteomyelitis. A Solomon was placed into the PIP joint any nonviable tissue or synovium was excised. The wound was once again irrigated with normal saline. A portion of the central slip was closed utilizing Monocryl suture but a portion of it was left open given his infection. Tourniquet was removed a peripheral vasculature was coagulated bipolar cautery. The transverse laceration was partially closed with interrupted 3-0 nylon suture. Wound was dressed with Xeroform 4 x 4's and Coban. Sponge, instrument and needle counts were correct. Patient was awakened from anesthesia transferred from the operative table to the operative stretcher. There was no intraoperative complications patient taps well with stable to PACU. Postoperative plan: Patient will continue on IV antibiotics. We will set him up for a PICC line he will require 4 weeks of IV antibiotics. Will begin dressing change postop day # 2.
[2017-06-19] MEDS: HYDROCODONE/ACETAMINOPHEN 5-325 MG TABLET PO PRN (10:00)
[2017-06-19] MEDS ORDERED: [UNRECOGNIZED DRUG - OTHER] PO SCH (10:00)
[2017-06-19] MEDS ORDERED: AMPHETAMINE PO SCH (10:00)
[2017-06-19] MEDS ORDERED: EPLERENONE 50 MG PO SCH (10:00)
[2017-06-19] MEDS ORDERED: (PENDING PHARMACY ID) (Lamotrigine [Lamotrigine] 200 MG) PO SCH (10:00)
[2017-06-19] MEDS ORDERED: (PENDING PHARMACY ID) (Lisinopril [Lisinopril] 40 MG) PO SCH (10:00)
[2017-06-19] MEDS ORDERED: DEXTROAMPHETAMINE PO SCH (10:00)
[2017-06-19] MEDS: LISINOPRIL 10 MG TABLET PO SCH (10:01)
[2017-06-19] MEDS: AMLODIPINE BESYLATE 10 MG TABLET PO SCH (10:01)
[2017-06-19] MEDS: PAROXETINE HCL 20 MG TABLET PO SCH (10:01)
[2017-06-19] MEDS: EPLERENONE 25 MG TABLET PO SCH (10:01)
[2017-06-19] MEDS: LAMOTRIGINE 100 MG TABLET PO SCH (10:01)
[2017-06-19] MEDS: CLONIDINE HCL 0.2 MG TABLET PO SCH ×2 (10:01→22:28)
[2017-06-19] MEDS: RINGERS SOLUTION,LACTATED 1,000 ML IV PRN (11:09)
--- NOTE | 2017-06-19 12:42 | PDOC PROGRESS REPORT ---
Subjective Progress Note for:: 06/19/17 Subjective:: The patient is a 66-year-old male. He does have underlying diabetes but it is well controlled. The patient sustained a laceration of the left middle finger last Wednesday. He presented with increasing redness, night sweats and chills and purulent drainage. The patient was admitted and placed on Unasyn. This morning, the patient was taken to the operating room by Dr. Braga and underwent incision and drainage. He does have an infected PIP joint and will need 4 weeks of intravenous antibiotics. Orthopedic surgery is arranging for the patient have a PICC line placed. The patient is complaining of pain at the incisional site and within the left hand in general but otherwise has no complaints. Physical Exam Vital Signs: Temp Pulse Resp BP Pulse Ox 97.5 F 65 17 125/74 98 06/19/17 11:46 06/19/17 11:46 06/19/17 11:46 06/19/17 11:46 06/19/17 11:46 Intake & Output 06/18/17 06/19/17 06/20/17 06:59 06:59 06:59 Intake Total 1490 Output Total 750 Balance 740 Weight 81.1 kg General appearance: PRESENT: no acute distress Head exam: PRESENT: atraumatic Eye exam: PRESENT: EOMI Respiratory exam: PRESENT: clear to auscultation vito, unlabored Cardiovascular exam: PRESENT: RRR GI/Abdominal exam: PRESENT: normal bowel sounds, soft Musculoskeletal exam: PRESENT: full ROM Neurological exam: PRESENT: alert Psychiatric exam: PRESENT: appropriate affect Skin exam: PRESENT: intact Results Laboratory Results: 06/19/17 05:05 06/18/17 18:00 06/18/17 06/18/17 06/18/17 16:51 16:51 18:00 WBC 8.4 RBC 4.56 Hgb 14.0 Hct 40.3 MCV 88 MCH 30.7 MCHC 34.7 RDW 13.6 Plt Count 247 Seg Neutrophils % 72.9 Lymphocytes % 16.4 Monocytes % 8.0 Eosinophils % 2.1 Basophils % 0.6 Absolute Neutrophils 6.1 Absolute Lymphocytes 1.4 Absolute Monocytes 0.7 Absolute Eosinophils 0.2 Absolute Basophils 0.1 Sodium 144.4 144.3 Potassium 4.0 3.8 Chloride 104 106 Carbon Dioxide 25 27 Anion Gap 15 11 BUN 17 16 Creatinine 0.65 0.63 Est GFR ( Amer) > 60 > 60 Est GFR (Non-Af Amer) > 60 > 60 Glucose 136 H 97 Calcium 9.8 8.9 Magnesium 2.0 C-Reactive Protein 35.8 H 06/19/17 05:05 WBC 5.3 RBC 4.08 L Hgb 12.5 L Hct 36.5 L MCV 90 MCH 30.7 MCHC 34.3 RDW 14.0 Plt Count 198 Seg Neutrophils % 61.6 Lymphocytes % 25.7 Monocytes % 9.3 Eosinophils % 3.0 Basophils % 0.4 Absolute Neutrophils 3.3 Absolute Lymphocytes 1.4 Absolute Monocytes 0.5 Absolute Eosinophils 0.2 Absolute Basophils 0.0 Sodium Potassium Chloride Carbon Dioxide Anion Gap BUN Creatinine Est GFR ( Amer) Est GFR (Non-Af Amer) Glucose Calcium Magnesium C-Reactive Protein Impressions: Hand X-Ray 06/18/17 15:41 IMPRESSION: SOFT TISSUE SWELLING WITHOUT ACUTE OSSEOUS ABNORMALITY. Assessment & Plan - Diagnosis (1) Diabetes Qualifiers: Diabetes mellitus type: type 2 Plan: The patient normally uses Metformin at home with good control of his diabetes. While he is hospitalized I would hold Metformin and use sliding scale insulin. (2) Hypertension Plan: Continue the patient's routine OP HTN meds which are Norvasc 10mg po daily, lisinopril 40mg po daily, clonidine 0.3mg po bid. The patient is also on eplerenone 50mg po daily. (3) Obstructive sleep apnea Plan: The patient does not have access to his CPAP machine. He will sleep in a partially inclined position. If necessary we can empirically use one of the hospitals machines but the patient does not know his pressure setting. (4) Adult ADHD (attention deficit hyperactivity disorder) Plan: Continue outpatient medications. (5) Depression Plan: Continue his psychiatric medications. (6) Abscess of finger of left hand Is this a current diagnosis for this admission?: Yes Plan: Dr. Braga took the patient to the operating room today. The patient does have an infected PIP joint will need 4 weeks of intravenous antibiotics. A PICC line is going to be arranged through the orthopedic surgery service. - Time Time Spent with patient: 25-34 minutes - Inpatient Certification Medical Necessity: Failure to Improve With Outpatient Therapy, Need Close Monitoring Due to Risk of Patient Decompensation, Need for IV Antibiotics
[2017-06-20] MEDS: AMPICILLIN SODIUM/SULBACTAM NA 3 GM in NORMAL SALINE 100 ML IV SCH ×5 (00:17→23:27)
[2017-06-20] MEDS: RINGERS SOLUTION,LACTATED 1,000 ML IV PRN ×2 (03:56→18:16)
[2017-06-20] MEDS: HYDROCODONE/ACETAMINOPHEN 5-325 MG TABLET PO PRN (04:02)
[2017-06-20 06:10] LABS: ABSOLUTE EOSINOPHILS # (AUTO) 0.1 10^3/uL (0.0-0.6); ABSOLUTE LYMPHOCYTES (AUTO) 1.5 10^3/uL (0.5-4.7); ABSOLUTE MONOCYTES (AUTO) 0.5 10^3/uL (0.1-1.4); ABSOLUTE NEUT (AUTO) 3.3 10^3/uL (1.7-8.2); BASOPHILS % (AUTO) 0.6 % (0-2); EOSINOPHILS % (AUTO) 2.7 % (0-6); HEMATOCRIT 36.7 % (37.9-51.0); HEMOGLOBIN 12.9 g/dL (13.5-17.0); LYMPHOCYTES % (AUTO) 26.9 % (13-45); MEAN CORPUSCULAR HEMOGLOBIN 30.6 pg (27.0-33.4); MEAN CORPUSCULAR HGB CONC 35.1 g/dL (32.0-36.0); MEAN CORPUSCULAR VOLUME 87 fl (80-97); MONOCYTES % (AUTO) 8.4 % (3-13); RED BLOOD COUNT 4.21 10^6/uL (4.35-5.55); RED CELL DISTRIBUTION WIDTH 13.5 % (11.5-14.0); SEGMENTED NEUTROPHILS % (AUTO) 61.4 % (42-78); WHITE BLOOD COUNT 5.4 10^3/uL (4.0-10.5)
[2017-06-20 06:25] LABS: ANION GAP 12 (5-19); BLOOD UREA NITROGEN 10 mg/dL (7-20); CARBON DIOXIDE 25 mmol/L (22-30); CHLORIDE 104 mmol/L (98-107); CREATININE RESULT 0.58 mg/dL (0.52-1.25); GLUCOSE 119 mg/dL (75-110); POTASSIUM 3.8 mmol/L (3.6-5.0)
[2017-06-20] MEDS: LISINOPRIL 10 MG TABLET PO SCH (09:04)
[2017-06-20] MEDS: CLONIDINE HCL 0.2 MG TABLET PO SCH ×2 (09:05→21:59)
[2017-06-20] MEDS: PAROXETINE HCL 20 MG TABLET PO SCH (09:07)
[2017-06-20] MEDS: AMLODIPINE BESYLATE 10 MG TABLET PO SCH (09:07)
[2017-06-20] MEDS: LAMOTRIGINE 100 MG TABLET PO SCH (09:08)
[2017-06-20] MEDS: EPLERENONE 25 MG TABLET PO SCH (09:08)
--- NOTE | 2017-06-20 14:00 | PDOC PROGRESS REPORT ---
Subjective Progress Note for:: 06/20/17 Subjective:: The patient is a 66-year-old male. He does have underlying diabetes but it is well controlled. The patient sustained a laceration of the left middle finger last Wednesday. Initially, he presented to the emergency department on 2016. The area on the finger was lanced. It was collected for culture. That specimen is growing a brambila sensitive Staphylococcus aureus species. The patient was given oral antibiotics and oral pain medications. He was also given a consultation to see a hand surgeon. Unfortunately, his symptoms progressed. On the day of admission, he presented with increasing redness, night sweats and chills and purulent drainage. The patient was admitted and placed on Unasyn. The patient was taken to the operating room by Dr. Braga and underwent incision and drainage on 06/19/2017 he does have an infected PIP joint and will need 4 weeks of intravenous antibiotics. Orthopedic surgery is arranging for the patient have a PICC line placed. The patient has received a tetanus toxoid vaccination. Today, the patient voices no complaints. His hand pain is completely resolved at this time. Physical Exam Vital Signs: Temp Pulse Resp BP Pulse Ox 98.6 F 62 17 120/78 98 06/20/17 11:43 06/20/17 11:43 06/20/17 11:43 06/20/17 11:43 06/20/17 11:43 Intake & Output 06/19/17 06/20/17 06/21/17 06:59 06:59 06:59 Intake Total 3570 Output Total 2775 Balance 795 Weight 81.1 kg General appearance: PRESENT: no acute distress, cooperative Head exam: PRESENT: atraumatic Eye exam: PRESENT: EOMI Mouth exam: PRESENT: moist Respiratory exam: PRESENT: clear to auscultation vito, unlabored Cardiovascular exam: PRESENT: RRR GI/Abdominal exam: PRESENT: normal bowel sounds, soft Musculoskeletal exam: PRESENT: ambulatory, full ROM Neurological exam: PRESENT: alert, awake Psychiatric exam: PRESENT: appropriate affect Skin exam: PRESENT: intact Additional comments: The left hand is wrapped in a surgical bandage. Results Laboratory Results: 06/20/17 05:37 06/20/17 05:37 06/20/17 06/20/17 05:37 05:37 WBC 5.4 RBC 4.21 L Hgb 12.9 L Hct 36.7 L MCV 87 MCH 30.6 MCHC 35.1 RDW 13.5 Plt Count 195 Seg Neutrophils % 61.4 Lymphocytes % 26.9 Monocytes % 8.4 Eosinophils % 2.7 Basophils % 0.6 Absolute Neutrophils 3.3 Absolute Lymphocytes 1.5 Absolute Monocytes 0.5 Absolute Eosinophils 0.1 Absolute Basophils 0.0 Sodium 141.0 Potassium 3.8 Chloride 104 Carbon Dioxide 25 Anion Gap 12 BUN 10 Creatinine 0.58 Est GFR ( Amer) > 60 Est GFR (Non-Af Amer) > 60 Glucose 119 H Calcium 9.0 Magnesium 2.0 Impressions: Hand X-Ray 06/18/17 15:41 IMPRESSION: SOFT TISSUE SWELLING WITHOUT ACUTE OSSEOUS ABNORMALITY. Assessment & Plan - Diagnosis (1) Diabetes Qualifiers: Diabetes mellitus type: type 2 Plan: The patient normally uses Metformin at home with good control of his diabetes. While he is hospitalized I would hold Metformin and use sliding scale insulin. (2) Hypertension Plan: Continue the patient's routine OP HTN meds which are Norvasc 10mg po daily, lisinopril 40mg po daily, clonidine 0.3mg po bid. The patient is also on eplerenone 50mg po daily. (3) Obstructive sleep apnea Plan: The patient does not have access to his CPAP machine. He will sleep in a partially inclined position. If necessary we can empirically use one of the hospitals machines but the patient does not know his pressure setting. (4) Adult ADHD (attention deficit hyperactivity disorder) Plan: Continue outpatient medications. (6) Abscess of finger of left hand Is this a current diagnosis for this admission?: Yes Plan: Dr. Braga took the patient to the operating room today. The patient does have an infected PIP joint will need 4 weeks of intravenous antibiotics. A PICC line is going to be arranged through the orthopedic surgery service. - Time Time Spent with patient: 15-24 minutes Anticipated discharge: Home with Homehealth Within: within 48 hours - Inpatient Certification Medical Necessity: Need Close Monitoring Due to Risk of Patient Decompensation, Need for IV Antibiotics - Plan Summary Plan Summary: Patient is ambulatory and is also receiving mechanical DVT prophylaxis.
[2017-06-21] MEDS: AMPICILLIN SODIUM/SULBACTAM NA 3 GM in NORMAL SALINE 100 ML IV SCH ×3 (05:36→17:27)
[2017-06-21 06:00] LABS: ABSOLUTE EOSINOPHILS # (AUTO) 0.1 10^3/uL (0.0-0.6); ABSOLUTE LYMPHOCYTES (AUTO) 1.6 10^3/uL (0.5-4.7); ABSOLUTE MONOCYTES (AUTO) 0.5 10^3/uL (0.1-1.4); ABSOLUTE NEUT (AUTO) 3.1 10^3/uL (1.7-8.2); BASOPHILS % (AUTO) 0.5 % (0-2); EOSINOPHILS % (AUTO) 2.5 % (0-6); HEMATOCRIT 37.2 % (37.9-51.0); HEMOGLOBIN 12.7 g/dL (13.5-17.0); HGB HCT DIFFERENCE 0.9; LYMPHOCYTES % (AUTO) 30.4 % (13-45); MEAN CORPUSCULAR HEMOGLOBIN 30.6 pg (27.0-33.4); MEAN CORPUSCULAR HGB CONC 34.2 g/dL (32.0-36.0); MEAN CORPUSCULAR VOLUME 89 fl (80-97); MONOCYTES % (AUTO) 8.6 % (3-13); RED BLOOD COUNT 4.17 10^6/uL (4.35-5.55); RED CELL DISTRIBUTION WIDTH 13.5 % (11.5-14.0); WHITE BLOOD COUNT 5.4 10^3/uL (4.0-10.5)
[2017-06-21] MEDS: CLONIDINE HCL 0.2 MG TABLET PO SCH ×2 (10:00→21:40)
[2017-06-21] MEDS: EPLERENONE 25 MG TABLET PO SCH (10:01)
[2017-06-21] MEDS: LISINOPRIL 10 MG TABLET PO SCH (10:01)
[2017-06-21] MEDS: LAMOTRIGINE 100 MG TABLET PO SCH (10:01)
[2017-06-21] MEDS: AMLODIPINE BESYLATE 10 MG TABLET PO SCH (10:02)
[2017-06-21] MEDS: PAROXETINE HCL 20 MG TABLET PO SCH (10:02)
--- NOTE | 2017-06-21 13:22 | PDOC PROGRESS REPORT ---
Subjective Progress Note for:: 06/21/17 Subjective:: The patient is a 66-year-old male. He does have underlying diabetes but it is well controlled. The patient sustained a laceration of the left middle finger last Wednesday. Initially, he presented to the emergency department on 2016. The area on the finger was lanced. It was collected for culture. That specimen is growing a brambila sensitive Staphylococcus aureus species. The patient was given oral antibiotics and oral pain medications. He was also given a consultation to see a hand surgeon. Unfortunately, his symptoms progressed. On the day of admission, he presented with increasing redness, night sweats and chills and purulent drainage. The patient was admitted and placed on Unasyn. The patient was taken to the operating room by Dr. Braga and underwent incision and drainage on 06/19/2017 he does have an infected PIP joint and will need 4 weeks of intravenous antibiotics. Orthopedic surgery is arranging for the patient have a PICC line placed. The patient has received a tetanus toxoid vaccination. Today, the patient has a mild throbbing sensation in his left hand. He is otherwise without complaints. . Physical Exam Vital Signs: Temp Pulse Resp BP Pulse Ox 98.5 F 59 L 18 111/82 100 06/21/17 12:06 06/21/17 12:06 06/21/17 12:06 06/21/17 12:06 06/21/17 12:06 Intake & Output 06/20/17 06/21/17 06/22/17 06:59 06:59 06:59 Intake Total 3570 1900 Output Total 2775 800 Balance 795 1100 General appearance: PRESENT: no acute distress, cooperative Head exam: PRESENT: atraumatic Eye exam: PRESENT: EOMI Mouth exam: PRESENT: moist, neck supple Respiratory exam: PRESENT: clear to auscultation vito, unlabored Cardiovascular exam: PRESENT: RRR GI/Abdominal exam: PRESENT: normal bowel sounds, soft Rectal exam: PRESENT: deferred Musculoskeletal exam: PRESENT: full ROM - Left hand remains in a surgical bandage. His fingers are warm and sensation is intact. He can wiggle all of his fingers. Results Laboratory Results: 06/21/17 05:15 06/20/17 05:37 06/21/17 05:15 WBC 5.4 RBC 4.17 L Hgb 12.7 L Hct 37.2 L MCV 89 MCH 30.6 MCHC 34.2 RDW 13.5 Plt Count 207 Seg Neutrophils % 58.0 Lymphocytes % 30.4 Monocytes % 8.6 Eosinophils % 2.5 Basophils % 0.5 Absolute Neutrophils 3.1 Absolute Lymphocytes 1.6 Absolute Monocytes 0.5 Absolute Eosinophils 0.1 Absolute Basophils 0.0 06/19/17 08:29 Finger - Left Middle Finger Gram Stain - Final Impressions: Hand X-Ray 06/18/17 15:41 IMPRESSION: SOFT TISSUE SWELLING WITHOUT ACUTE OSSEOUS ABNORMALITY. Assessment & Plan - Diagnosis (1) Diabetes Qualifiers: Diabetes mellitus type: type 2 Is this a current diagnosis for this admission?: Yes Plan: The patient normally uses Metformin at home with good control of his diabetes. While he is hospitalized I would hold Metformin and use sliding scale insulin. (2) Hypertension Is this a current diagnosis for this admission?: Yes Plan: Continue the patient's routine OP HTN meds which are Norvasc 10mg po daily, lisinopril 40mg po daily, clonidine 0.3mg po bid. The patient is also on eplerenone 50mg po daily. (3) Obstructive sleep apnea Is this a current diagnosis for this admission?: Yes Plan: The patient does not have access to his CPAP machine. He will sleep in a partially inclined position. If necessary we can empirically use one of the hospitals machines but the patient does not know his pressure setting. (4) Adult ADHD (attention deficit hyperactivity disorder) Is this a current diagnosis for this admission?: Yes Plan: Continue outpatient medications. (5) Depression Is this a current diagnosis for this admission?: Yes Plan: Continue his psychiatric medications. (6) Abscess of finger of left hand Is this a current diagnosis for this admission?: Yes Plan: Dr. Braga took the patient to the operating room 06/19/17. The patient does have an infected PIP joint. According to the operative note he will need 4 weeks of intravenous antibiotics.
[2017-06-22] MEDS: AMPICILLIN SODIUM/SULBACTAM NA 3 GM in NORMAL SALINE 100 ML IV SCH ×2 (01:00→06:44)
[2017-06-22 09:06] VITALS: BP 164/98
[2017-06-22] MEDS: LISINOPRIL 10 MG TABLET PO SCH (09:17)
[2017-06-22] MEDS: AMLODIPINE BESYLATE 10 MG TABLET PO SCH (09:18)
[2017-06-22] MEDS: PAROXETINE HCL 20 MG TABLET PO SCH (09:18)
[2017-06-22] MEDS: CLONIDINE HCL 0.2 MG TABLET PO SCH (09:18)
[2017-06-22] MEDS: LAMOTRIGINE 100 MG TABLET PO SCH (09:19)
[2017-06-22] MEDS: EPLERENONE 25 MG TABLET PO SCH (09:19)
[2017-06-22] MEDS ORDERED: MORPHINE SULFATE 10 MG/ML INJ IV PRN (10:00)
[2017-06-22] MEDS ORDERED: ALPRAZOLAM 0.5 MG TABLET PO PRN (10:30)
--- NOTE | 2017-06-22 14:49 | PDOC DISCHARGE SUMMARY ---
General - Admit/Disc Date/PCP Admission Date/Primary Care Provider: 06/18/17 15:52 Discharge Date: 06/22/17 - Discharge Diagnosis (1) Abscess of finger of left hand Is this a current diagnosis for this admission?: Yes - Additional Information Resuscitation Status: Full Code Discharge Diet: As Tolerated Discharge Activity: No Lifting Over 10 Pounds, No Lifting/Push/Pulling Home Medications: Alprazolam [Xanax 0.5 mg Tablet] 0.5 mg PO Q12HP PRN 06/18/17 Amlodipine Besylate [Norvasc 10 mg Tablet] 10 mg PO DAILY 06/18/17 Clonidine HCl 0.3 mg PO Q12 06/18/17 Dextroamphetamine/Amphetamine [Dextroamp-Amphet ER 30 mg Cap] 30 mg PO DAILY 11/03 Eplerenone 50 mg PO DAILY 06/18/17 Lamotrigine 200 mg PO DAILY 06/18/17 Lisinopril 40 mg PO DAILY 06/18/17 Metformin HCl [Metformin HCl ER] 750 mg PO BIDBS 06/18/17 Morphine Sulfate 15 mg PO Q4HP PRN 06/18/17 Paroxetine HCl 40 mg PO DAILY 06/18/17 Amoxicillin/Potassium Clav [Amox-Clav 875-125 mg Tablet] 1 tab PO Q12 PRN #20 tablet 06/22/17 Hydrocodone/Acetaminophen [[place] 5-325 mg Tablet] 1 tab PO Q6 PRN #30 tablet 03/03 History of Present Illness History of Present Illness: History of Present Illness Patient complains of: Swelling left middle finger History of Present Illness: CHANDANA PATTERSON is a 66 year old male 66-year-old male who sustained a laceration to his left middle finger approximately 1 week ago. He subsequently was seen at the emergency room for an abscess which was decompressed irrigated and started on antibiotics. He was seen in our office with redness and swelling was controlled there was no significant drainage at that time. The patient states over the past 24-48 hours despite antibiotics and daily dressing changes the redness swelling and pain notably worsened and he began having cloudy appearing discharge. His current pain is 7/10. Musculoskeletal exam: PRESENT: other - Left hand: Notable redness swelling with transverse wound along the PIP joint dorsally. Erythema throughout the dorsum of the finger. Pain with terminal flexion. Digit rest in the flexed position. No tenderness along the flexor sheath. Cloudy drainage expressed with palpation. Cap refill less than 2 seconds. No sensory deficits. Neurological exam: PRESENT: alert, awake, oriented to person, oriented to place , oriented to time, oriented to situation, CN II-XII grossly intact. ABSENT: motor sensory deficit Psychiatric exam: PRESENT: appropriate affect, normal mood. ABSENT: homicidal ideation, suicidal ideation Skin exam: PRESENT: dry, intact, warm. ABSENT: cyanosis, rash Results Laboratory Results: 06/14/17 06:10 Finger - Left Middle Finger Gram Stain - Final 06/14/17 06:10 Finger - Left Middle Finger Wound Culture - Final Staphylococcus Aureus Assessment & Plan - Diagnosis (1) Abscess of finger of left hand Is this a current diagnosis for this admission?: Yes Plan: Patient demonstrates cloudy drainage on examination today which is consistent with possible residual abscess of the left middle finger but given its location underlying PIP joint septic arthritis remains within the differential diagnosis. Patient will be started on IV Unasyn since his previous cultures were pansensitive. We will set him up for operative intervention within the next 24 hours which includes irrigation and debridement left middle finger. Risks and benefits have been explained to the patient including residual pain, stiffness, posttraumatic arthritis, worsening infection requiring repeat operative intervention and any unforeseen complication patient has verbalized understanding consented for the procedure. Hospital Course Hospital Course: Patient underwent irrigation and debridement left total finger PIP joint on . Patient states since the time of surgical procedure his pain and swelling has significantly improved. He denied fever chills or sweats. Cultures demonstrate methicillin sensitive staph aureus. He has been receiving Unasyn with notable improvement. Patient's pain has been controlled does have occasional discomfort at night. Physical Exam Vital Signs: Temp Pulse Resp BP Pulse Ox 98.1 F 68 18 164/98 H 100 06/22/17 09:04 06/22/17 09:04 06/22/17 09:04 06/22/17 09:04 06/22/17 09:04 Intake & Output 06/21/17 06/22/17 06/23/17 06:59 06:59 06:59 Intake Total 1900 3010 Output Total 800 2375 Balance 1100 635 Weight 89.1 kg General appearance: PRESENT: no acute distress, well-developed, well-nourished Head exam: PRESENT: atraumatic, normocephalic Eye exam: PRESENT: conjunctiva pink, EOMI, PERRLA. ABSENT: scleral icterus Ear exam: PRESENT: normal external ear exam Mouth exam: PRESENT: moist, tongue midline Neck exam: PRESENT: full ROM. ABSENT: carotid bruit, JVD, lymphadenopathy, thyromegaly Cardiovascular exam: PRESENT: RRR. ABSENT: diastolic murmur, rubs, systolic murmur Pulses: PRESENT: normal dorsalis pedis pul, +2 pedal pulses bilateral Vascular exam: PRESENT: normal capillary refill GI/Abdominal exam: PRESENT: normal bowel sounds, soft. ABSENT: distended, guarding, mass, organolmegaly, rebound, tenderness Rectal exam: PRESENT: deferred Musculoskeletal exam: PRESENT: other - Left middle finger: Scant serosanguineous drainage. Erythema and swelling significantly improved. Patient has pain with forced terminal flexion. No pain with knee range of motion. Has 15 extension lag of the PIP joint. No sensory deficits. Cap refill less than 2 seconds. No tenderness on the flexor sheath. No tracking erythema. Neurological exam: PRESENT: alert, awake, oriented to person, oriented to place , oriented to time, oriented to situation, CN II-XII grossly intact. ABSENT: motor sensory deficit Psychiatric exam: PRESENT: appropriate affect, normal mood. ABSENT: homicidal ideation, suicidal ideation Skin exam: PRESENT: dry, intact, warm. ABSENT: cyanosis, rash Results Laboratory Results: 06/21/17 05:15 06/20/17 05:37 06/22/17 08:19 C-Reactive Protein 11.9 H 06/19/17 08:29 Finger - Left Middle Finger Gram Stain - Final 06/19/17 08:29 Finger - Left Middle Finger Wound Culture - Final Staphylococcus Aureus No Anaerobic Organisms Impressions: Hand X-Ray 06/18/17 15:41 IMPRESSION: SOFT TISSUE SWELLING WITHOUT ACUTE OSSEOUS ABNORMALITY. Plan Discharge Plan: Patient's cultures are positive for methicillin sensitive staph aureus. Given the fact there is no underlying indication of osteomyelitis I do not feel patient requires long-term IV antibiotics. At this point patient will be treated with Augmentin he will follow-up with me in 7 days for recheck. If patient notices increasing pain, swelling, temperature he should follow-up in my office prior to his scheduled appointment or to the emergency room. Patient was read the above instructions, understood the above instructions and was orthopedically stable for discharge to home on 06/22/17.
== END 2017-06-22 09:50 | disposition home or self-care (01) | DRG 983 ==
LOC: ER 14:46 → EH 15:52 → UNDOADMIN 16:01 → EH 16:01 → 5 19:04
PROVIDERS: ADMIT Orthopaedic Surgery; ATTEND Orthopaedic Surgery
PROC: 3E0234Z Introduction of Serum, Toxoid and Vaccine into Muscle, Percutaneous Approach (ICD-10-PCS; 2017-06-18)
PROC: 0PBT0ZZ Excision of Right Finger Phalanx, Open Approach (ICD-10-PCS; principal; 2017-06-19 08:00)
DX: L02.512 Cutaneous abscess of left hand (principal); B95.61 Methicillin susceptible Staphylococcus aureus infection as the cause of diseases classified elsewhere; E11.9 Type 2 diabetes mellitus without complications; I10 Essential (primary) hypertension; E78.5 Hyperlipidemia, unspecified; K21.9 Gastro-esophageal reflux disease without esophagitis; F90.9 Attention-deficit hyperactivity disorder, unspecified type; F32.9 Major depressive disorder, single episode, unspecified; G47.33 Obstructive sleep apnea (adult) (pediatric); M12.542 Traumatic arthropathy, left hand; Z23 Encounter for immunization; Z79.899 Other long term (current) drug therapy; Z82.3 Family history of stroke; Z83.3 Family history of diabetes mellitus; Z81.8 Family history of other mental and behavioral disorders; Z82.49 Family history of ischemic heart disease and other diseases of the circulatory system
CPT/HCPCS: 00400; 36415; 80048; 82962; 83735; 85025; 85610; 85652; 85730; 86140; 87040; 87070; 87075; 87077; 87186; 87205; 93005; 93010; 99285; J0295; J2250; J2270; J2704; J3010; J3490; J7030; J7120

== ENCOUNTER → 2017-11-01 | Outpatient (CLI) | payer BC, MEDICARE ==
[2017-11-01 10:55] LABS: ABSOLUTE EOSINOPHILS # (AUTO) 0.1 10^3/uL (0.0-0.6); ABSOLUTE LYMPHOCYTES (AUTO) 1.7 10^3/uL (0.5-4.7); ABSOLUTE MONOCYTES (AUTO) 0.4 10^3/uL (0.1-1.4); ABSOLUTE NEUT (AUTO) 3.6 10^3/uL (1.7-8.2); BASOPHILS % (AUTO) 0.3 % (0-2); HEMOGLOBIN 15.3 g/dL (13.5-17.0); LYMPHOCYTES % (AUTO) 28.3 % (13-45); MEAN CORPUSCULAR HGB CONC 34.1 g/dL (32.0-36.0); MEAN CORPUSCULAR VOLUME 88 fl (80-97); MONOCYTES % (AUTO) 7.6 % (3-13); PLATELET COUNT 165 10^3/uL (150-450); RED BLOOD COUNT 5.11 10^6/uL (4.35-5.55); RED CELL DISTRIBUTION WIDTH 14.7 % (11.5-14.0); SEGMENTED NEUTROPHILS % (AUTO) 61.8 % (42-78); TOTAL CELLS COUNTED % (AUTO) 100 %; WHITE BLOOD COUNT 5.8 10^3/uL (4.0-10.5)
[2017-11-01 11:13] LABS: ALANINE AMINOTRANSFERASE 61 U/L (21-72); ALBUMIN 4.9 g/dL (3.5-5.0); ALKALINE PHOSPHATASE 69 U/L (38-126); ANION GAP 12 (5-19); ASPARTATE AMINO TRANSFERASE 37 U/L (17-59); BILIRUBIN,DIRECT 0.2 mg/dL (0.0-0.4); BILIRUBIN,TOTAL 0.5 mg/dL (0.2-1.3); BLOOD UREA NITROGEN 14 mg/dL (7-20); CALCIUM 9.8 mg/dL (8.4-10.2); CARBON DIOXIDE 29 mmol/L (22-30); CHLORIDE 103 mmol/L (98-107); GLUCOSE 137 mg/dL (75-110); SODIUM 143.6 mmol/L (137-145); TOTAL PROTEIN 7.7 g/dL (6.3-8.2); TRIGLYCERIDES 196 mg/dL (<150)
[2017-11-01 11:24] LABS: DIRECT LDL 126 mg/dL (<100)
[2017-11-01 12:04] LABS: VLDL CHOLESTEROL 39.2 mg/dL (10-31)
[2017-11-02 11:40] LABS: CREATININE URINE 44.8 mg/dL (Not Estab.); MICROALBUMIN URINE 53.1 ug/mL (Not Estab.)
== END ==
LOC: OD 09:50
PROVIDERS: ATTEND Family Medicine Geriatric Medicine
DX: E78.5 Hyperlipidemia, unspecified (principal); E11.9 Type 2 diabetes mellitus without complications; K21.9 Gastro-esophageal reflux disease without esophagitis; E53.8 Deficiency of other specified B group vitamins; E55.9 Vitamin D deficiency, unspecified; Z79.899 Other long term (current) drug therapy; I10 Essential (primary) hypertension
CPT/HCPCS: 36415; 80053; 80061; 82043; 82306; 82570; 82607; 83036; 84443; 85025

== ENCOUNTER → 2017-12-13 | Outpatient (CLI) | payer BC ==
[2017-12-13 11:50] LABS: ALANINE AMINOTRANSFERASE 53 U/L (21-72); ASPARTATE AMINO TRANSFERASE 32 U/L (17-59); CHOLESTEROL 86.84 mg/dL (0-200); TRIGLYCERIDES 82 mg/dL (<150)
[2017-12-13 12:01] LABS: DIRECT LDL 35 mg/dL (<100)
[2017-12-14 10:42] LABS: CREATININE URINE 178.8 mg/dL (Not Estab.); MICROALBUMIN URINE 88.7 ug/mL (Not Estab.)
== END ==
LOC: OD 10:22
PROVIDERS: ATTEND Family Medicine Geriatric Medicine
DX: E11.21 Type 2 diabetes mellitus with diabetic nephropathy (principal); E78.5 Hyperlipidemia, unspecified; Z79.899 Other long term (current) drug therapy
CPT/HCPCS: 36415; 80061; 82043; 82570; 84450; 84460

== ENCOUNTER → 2017-12-22 | Outpatient (CLI) | payer BC ==
--- NOTE | 2017-12-23 12:16 | XCELERA REPORT ---
[address] [address] Transthoracic Echocardiogram Report Name: CHANDANA PATTERSON Age: 67 yrs Gender: Male : 1950 Patient Status: Outpatient Patient Location: Study Date: 12/22/2017 01:40 PM Height: 68 in Weight: 190 lb BSA: 2.0 m2 Procedure: A complete two-dimensional transthoracic echocardiogram was performed (2D, M-mode, spectral and color flow Doppler). The study was technically adequate with some images being suboptimal in quality. Reason For Study: SOB Ordering Physician: LUCIANO BALDWIN Performed By: Desire Loya Interpretation Summary The left ventricular ejection fraction is normal. There is borderline concentric left ventricular hypertrophy. Doppler measurements suggest impaired left ventricular relaxation, which is associated with grade I/IV or mild diastolic dysfunction The left ventricle is grossly normal size. The right ventricular systolic function is normal. The left atrial size is normal. The right atrium is normal in size There is a mild amount of mitral regurgitation There is no mitral valve stenosis. No aortic regurgitation is present. There is no aortic valve stenosis There is no tricuspid stenosis. No tricuspid regurgitation. The aortic root is not well visualized but is probably normal size. The inferior vena cava was not well visualized There is no pericardial effusion. MMode/2D Measurements & Calculations RVDd: 2.4 cm LVIDd: 5.7 cm FS: 36.7 % Ao root diam: 3.1 cm IVSd: 0.88 cm LVIDs: 3.6 cm EDV(Teich): 160.0 ml LVPWd: 0.94 cm ESV(Teich): 54.7 ml Ao root area: 7.8 cm2 EF(Teich): 65.8 % Doppler Measurements & Calculations MV E max maisha: MV dec slope: Ao V2 max: AI max maisha: 65.2 cm/sec 161.5 cm/sec 362.8 cm/sec MV A max maisha: 334.4 cm/sec2 Ao max PG: AI max P.6 cm/sec MV dec time: 10.4 mmHg 52.6 mmHg MV E/A: 0.54 0.19 sec AI dec slope: 129.6 cm/sec2 AI P1/2t: 819.6 msec LV V1 max PG: PA V2 max: 6.7 mmHg 130.2 cm/sec LV V1 max: PA max P.8 mmHg 129.2 cm/sec Left Ventricle The left ventricle is grossly normal size. There is borderline concentric left ventricular hypertrophy. The left ventricular ejection fraction is normal. Doppler measurements suggest impaired left ventricular relaxation, which is associated with grade I/IV or mild diastolic dysfunction. Wall motion cannot be accurately commented on, but no definite regional wall motion abnormalities noted. Right Ventricle The right ventricle is grossly normal size. There is normal right ventricular wall thickness. The right ventricular systolic function is normal. Atria The right atrium is normal in size. The left atrial size is normal. Interarterial septum not well visualized and not well dopplered. Cannot comment on ASD/PFO presence. Mitral Valve The mitral valve is grossly normal. There is no mitral valve stenosis. There is a mild amount of mitral regurgitation. Aortic Valve The aortic valve is grossly normal. There is no aortic valve stenosis. No aortic regurgitation is present. Tricuspid Valve The tricuspid valve is not well visualized secondary to technical limitations. There is no tricuspid stenosis. No tricuspid regurgitation. Pulmonic Valve The pulmonic valve is not well visualized. Great Vessels The aortic root is not well visualized but is probably normal size. The inferior vena cava was not well visualized. Effusions There is no pericardial effusion. : LUCIANO BALDWIN > Ruby Jiménez
== END ==
LOC: SP 13:25
PROVIDERS: ATTEND Specialist
DX: R06.02 Shortness of breath (principal)
CPT/HCPCS: 93306

== ENCOUNTER → 2018-03-12 | Outpatient (CLI) | payer BC ==
[2018-03-12 09:30] LABS: ANION GAP 12 (5-19); BLOOD UREA NITROGEN 13 mg/dL (7-20); CALCIUM 9.4 mg/dL (8.4-10.2); CARBON DIOXIDE 26 mmol/L (22-30); CHLORIDE 104 mmol/L (98-107); GLUCOSE 185 mg/dL (75-110); POTASSIUM 4.2 mmol/L (3.6-5.0); SODIUM 141.6 mmol/L (137-145)
[2018-03-14 03:36] LABS: CREATININE URINE 52.1 mg/dL (Not Estab.); MICROALBUMIN URINE 98.5 ug/mL (Not Estab.)
== END ==
LOC: OD 08:22
PROVIDERS: ATTEND Family Medicine Geriatric Medicine
DX: E11.21 Type 2 diabetes mellitus with diabetic nephropathy (principal); I10 Essential (primary) hypertension; Z79.899 Other long term (current) drug therapy
CPT/HCPCS: 36415; 80048; 82043; 82570; 83036

== ENCOUNTER → 2018-04-29 | Outpatient (CLI) | payer BC ==
[2018-04-29 11:59] LABS: HEMATOCRIT 41.3 % (37.9-51.0); HEMOGLOBIN 14.4 g/dL (13.5-17.0); MEAN CORPUSCULAR HEMOGLOBIN 30.9 pg (27.0-33.4); MEAN CORPUSCULAR VOLUME 88 fl (80-97); PLATELET COUNT 153 10^3/uL (150-450); RED BLOOD COUNT 4.67 10^6/uL (4.35-5.55); RED CELL DISTRIBUTION WIDTH 14.4 % (11.5-14.0); WHITE BLOOD COUNT 5.8 10^3/uL (4.0-10.5)
[2018-04-29 12:06] LABS: APPEARANCE,URINE CLEAR; BILIRUBIN,URINE NEGATIVE (NEGATIVE); COLOR,URINE YELLOW; GLUCOSE, URINE >=500 mg/dL (NEGATIVE); KETONES,URINE TRACE mg/dL (NEGATIVE); LEUKOCYTE ESTERASE,URINE NEGATIVE (NEGATIVE); NITRITE,URINE NEGATIVE (NEGATIVE); PROTEIN,URINE 30 mg/dL (NEGATIVE); URINE SPECIFIC GRAVITY 1.016; UROBILINOGEN,URINE NEGATIVE mg/dL (<2.0)
[2018-04-29 12:20] LABS: ANION GAP 14 (5-19); BLOOD UREA NITROGEN 13 mg/dL (7-20); CALCIUM 9.5 mg/dL (8.4-10.2); CARBON DIOXIDE 30 mmol/L (22-30); CHLORIDE 102 mmol/L (98-107); GLUCOSE 141 mg/dL (75-110)
[2018-04-30 12:38] LABS: CREATININE URINE 81.3 mg/dL (Not Estab.); MICROALBUMIN URINE 88.2 ug/mL (Not Estab.)
== END ==
LOC: OD 11:00
PROVIDERS: ATTEND Internal Medicine Nephrology
DX: R80.9 Proteinuria, unspecified (principal); E11.9 Type 2 diabetes mellitus without complications; I10 Essential (primary) hypertension
CPT/HCPCS: 36415; 80048; 81001; 82043; 82570; 85027

== ENCOUNTER → 2019-03-02 | Outpatient (CLI) | payer BC ==
[2019-03-02 10:18] LABS: ABSOLUTE EOSINOPHILS # (AUTO) 0.1 10^3/uL (0.0-0.6); ABSOLUTE LYMPHOCYTES (AUTO) 2.2 10^3/uL (0.5-4.7); ABSOLUTE MONOCYTES (AUTO) 0.6 10^3/uL (0.1-1.4); ABSOLUTE NEUT (AUTO) 4.4 10^3/uL (1.7-8.2); BASOPHILS % (AUTO) 0.3 % (0-2); EOSINOPHILS % (AUTO) 1.6 % (0-6); HEMATOCRIT 47.7 % (37.9-51.0); LYMPHOCYTES % (AUTO) 29.6 % (13-45); MEAN CORPUSCULAR HEMOGLOBIN 29.6 pg (27.0-33.4); MEAN CORPUSCULAR HGB CONC 33.6 g/dL (32.0-36.0); MEAN CORPUSCULAR VOLUME 88 fl (80-97); MONOCYTES % (AUTO) 8.2 % (3-13); PLATELET COUNT 207 10^3/uL (150-450); RED BLOOD COUNT 5.41 10^6/uL (4.35-5.55); RED CELL DISTRIBUTION WIDTH 14.4 % (11.5-14.0); SEGMENTED NEUTROPHILS % (AUTO) 60.3 % (42-78); TOTAL CELLS COUNTED % (AUTO) 100 %; WHITE BLOOD COUNT 7.3 10^3/uL (4.0-10.5)
[2019-03-02 10:45] LABS: ALANINE AMINOTRANSFERASE 54 U/L (21-72); ALBUMIN 4.5 g/dL (3.5-5.0); ALKALINE PHOSPHATASE 79 U/L (38-126); ANION GAP 13 (5-19); ASPARTATE AMINO TRANSFERASE 27 U/L (17-59); BILIRUBIN,DIRECT 0.2 mg/dL (0.0-0.4); BILIRUBIN,TOTAL 0.8 mg/dL (0.2-1.3); BLOOD UREA NITROGEN 16 mg/dL (7-20); CALCIUM 9.8 mg/dL (8.4-10.2); CARBON DIOXIDE 28 mmol/L (22-30); CHLORIDE 101 mmol/L (98-107); CHOLESTEROL 92.27 mg/dL (0-200); GLUCOSE 217 mg/dL (75-110); POTASSIUM 4.6 mmol/L (3.6-5.0); SODIUM 141.7 mmol/L (137-145); TOTAL PROTEIN 7.1 g/dL (6.3-8.2); TRIGLYCERIDES 130 mg/dL (<150)
[2019-03-02 10:55] LABS: DIRECT LDL 42 mg/dL (<100)
[2019-03-03 12:37] LABS: CREATININE URINE 51.9 mg/dL (Not Estab.); MICROALBUMIN URINE 100.7 ug/mL (Not Estab.)
== END ==
LOC: OD 09:24
PROVIDERS: ATTEND Family Medicine Geriatric Medicine
DX: E11.21 Type 2 diabetes mellitus with diabetic nephropathy (principal); E78.5 Hyperlipidemia, unspecified; I10 Essential (primary) hypertension; Z79.899 Other long term (current) drug therapy; I49.3 Ventricular premature depolarization
CPT/HCPCS: 36415; 80053; 80061; 82043; 82570; 83036; 85025

== ENCOUNTER → 2019-06-01 | Outpatient (CLI) | payer BC ==
[2019-06-01 10:16] LABS: ANION GAP 13 (5-19); BLOOD UREA NITROGEN 19 mg/dL (7-20); CALCIUM 9.7 mg/dL (8.4-10.2); CARBON DIOXIDE 28 mmol/L (22-30); CHLORIDE 99 mmol/L (98-107); GLUCOSE 160 mg/dL (75-110); POTASSIUM 4.3 mmol/L (3.6-5.0)
[2019-06-02 10:37] LABS: CREATININE URINE 320.6 mg/dL (Not Estab.); MICROALBUMIN URINE 123.9 ug/mL (Not Estab.)
== END ==
LOC: OD 09:21
PROVIDERS: ATTEND Family Medicine Geriatric Medicine
DX: E11.21 Type 2 diabetes mellitus with diabetic nephropathy (principal); E78.5 Hyperlipidemia, unspecified; I10 Essential (primary) hypertension; Z79.899 Other long term (current) drug therapy
CPT/HCPCS: 36415; 80048; 82043; 82570; 83036

== ENCOUNTER → 2019-09-01 | Outpatient (CLI) | payer BC ==
[2019-09-01 11:58] LABS: TRIGLYCERIDES 121 mg/dL (<150)
[2019-09-01 12:09] LABS: DIRECT LDL 48 mg/dL (<100)
[2019-09-02 11:37] LABS: CREATININE URINE 59.2 mg/dL (Not Estab.); MICROALBUMIN URINE 195.5 ug/mL (Not Estab.)
== END ==
LOC: OD 09:36
PROVIDERS: ATTEND Family Medicine Geriatric Medicine
DX: E11.21 Type 2 diabetes mellitus with diabetic nephropathy (principal); E78.5 Hyperlipidemia, unspecified; I10 Essential (primary) hypertension; Z79.899 Other long term (current) drug therapy
CPT/HCPCS: 80061; 82043; 82570; 84460

== ENCOUNTER → 2019-12-01 | Outpatient (CLI) | payer BC ==
[2019-12-01 10:56] LABS: ABSOLUTE EOSINOPHILS # (AUTO) 0.1 10^3/uL (0.0-0.6); ABSOLUTE LYMPHOCYTES (AUTO) 1.6 10^3/uL (0.5-4.7); ABSOLUTE MONOCYTES (AUTO) 0.5 10^3/uL (0.1-1.4); ABSOLUTE NEUT (AUTO) 3.6 10^3/uL (1.7-8.2); BASOPHILS % (AUTO) 0.2 % (0-2); HEMATOCRIT 44.7 % (37.9-51.0); HEMOGLOBIN 15.5 g/dL (13.5-17.0); LYMPHOCYTES % (AUTO) 26.7 % (13-45); MEAN CORPUSCULAR HEMOGLOBIN 30.6 pg (27.0-33.4); MEAN CORPUSCULAR HGB CONC 34.7 g/dL (32.0-36.0); MEAN CORPUSCULAR VOLUME 88 fl (80-97); MONOCYTES % (AUTO) 9.1 % (3-13); PLATELET COUNT 171 10^3/uL (150-450); RED BLOOD COUNT 5.07 10^6/uL (4.35-5.55); RED CELL DISTRIBUTION WIDTH 14.4 % (11.5-14.0); TOTAL CELLS COUNTED % (AUTO) 100 %; WHITE BLOOD COUNT 5.9 10^3/uL (4.0-10.5)
[2019-12-01 11:20] LABS: ANION GAP 12 (5-19); BLOOD UREA NITROGEN 17 mg/dL (7-20); CALCIUM 10.1 mg/dL (8.4-10.2); CARBON DIOXIDE 32 mmol/L (22-30); CHLORIDE 96 mmol/L (98-107); GLUCOSE 212 mg/dL (75-110); POTASSIUM 4.6 mmol/L (3.6-5.0)
[2019-12-02 14:36] LABS: CREATININE URINE 85.6 mg/dL (Not Estab.); MICROALBUMIN URINE 178.5 ug/mL (Not Estab.)
== END ==
LOC: OD 09:47
PROVIDERS: ATTEND Family Medicine Geriatric Medicine
DX: E11.21 Type 2 diabetes mellitus with diabetic nephropathy (principal); I10 Essential (primary) hypertension; E78.5 Hyperlipidemia, unspecified; Z79.899 Other long term (current) drug therapy
CPT/HCPCS: 36415; 80048; 82043; 82570; 83036; 85025

== ENCOUNTER → 2020-07-25 | Outpatient (CLI) | payer BC ==
[2020-07-25 11:19] LABS: ABSOLUTE EOSINOPHILS # (AUTO) 0.1 10^3/uL (0.0-0.6); ABSOLUTE LYMPHOCYTES (AUTO) 1.5 10^3/uL (0.5-4.7); ABSOLUTE MONOCYTES (AUTO) 0.5 10^3/uL (0.1-1.4); BASOPHILS % (AUTO) 0.4 % (0-2); EOSINOPHILS % (AUTO) 1.9 % (0-6); HEMOGLOBIN 15.1 g/dL (13.5-17.0); LYMPHOCYTES % (AUTO) 24.2 % (13-45); MEAN CORPUSCULAR HGB CONC 35.2 g/dL (32.0-36.0); MEAN CORPUSCULAR VOLUME 88 fl (80-97); MONOCYTES % (AUTO) 8.6 % (3-13); PLATELET COUNT 179 10^3/uL (150-450); RED BLOOD COUNT 4.89 10^6/uL (4.35-5.55); RED CELL DISTRIBUTION WIDTH 14.4 % (11.5-14.0); SEGMENTED NEUTROPHILS % (AUTO) 64.9 % (42-78); TOTAL CELLS COUNTED % (AUTO) 100 %; WHITE BLOOD COUNT 6.2 10^3/uL (4.0-10.5)
[2020-07-25 12:06] LABS: ANION GAP 14 (5-19); BLOOD UREA NITROGEN 11 mg/dL (7-20); CALCIUM 9.5 mg/dL (8.4-10.2); CARBON DIOXIDE 28 mmol/L (22-30); CHLORIDE 100 mmol/L (98-107); CHOLESTEROL 111.26 mg/dL (0-200); GLUCOSE 178 mg/dL (75-110); TRIGLYCERIDES 137 mg/dL (<150)
[2020-07-25 12:18] LABS: DIRECT LDL 49 mg/dL (<100)
[2020-07-26 11:37] LABS: CREATININE URINE 89.3 mg/dL (Not Estab.); MICROALBUMIN URINE 244.5 ug/mL (Not Estab.)
== END ==
LOC: OD 10:27
PROVIDERS: ATTEND Family Medicine Geriatric Medicine
DX: E11.21 Type 2 diabetes mellitus with diabetic nephropathy (principal); I10 Essential (primary) hypertension; E78.5 Hyperlipidemia, unspecified; I49.3 Ventricular premature depolarization; Z79.899 Other long term (current) drug therapy
CPT/HCPCS: 36415; 80048; 80061; 82043; 82570; 83036; 84460; 85025